=== PATIENT | male | born 1965 | race Caucasian/White ===

== ENCOUNTER 2016-12-12 19:41 | Emergency (ER) | payer OTHER ==
[~2016-12-12] VITALS: Ht 175.3 cm; Wt 140.2 kg
[~2016-12-12 19:41] MED LIST: COLCHICINE PO; GABA-531 PO; GLIP5TAB13 PO; PROBENECID PO; SEVE800T8 PO; VANC250C11 PO
[2016-12-12 19:57] VITALS: BP_SYST 146
[2016-12-12 21:21] LABS: BASOPHILS # (AUTO) 0.2 K/uL (0.0-0.2); BASOPHILS % (AUTO) 2.8 % (0.0-2.0); CALCIUM 8.6 mg/dL (8.4-11.0); EOSINOPHILS # (AUTO) 0.1 K/uL (0.0-0.4); HEMOGLOBIN 9.8 g/dL (14.0-18.0); LYMPHOCYTES # (AUTO) 0.5 K/uL (1.0-5.5); LYMPHOCYTES % (AUTO) 5.7 % (20.5-51.5); MEAN CORPUSCULAR HEMOGLOBIN 34 pg (27-31); MEAN CORPUSCULAR HGB CONC 34 % (32-36); MEAN CORPUSCULAR VOLUME 101 fL (79.0-98.0); MONOCYTES # (AUTO) 0.8 K/uL (0.0-1.0); MONOCYTES % (AUTO) 9.6 % (1.7-9.3); NEUTROPHILS # (AUTO) 7.2 K/uL (1.8-7.7); NEUTROPHILS % (AUTO) 80.9 % (40.0-70.0); POTASSIUM 5.1 mmol/L (3.5-5.1); RED BLOOD CELL COUNT(AUTO) 2.87 MIL/uL (4.2-6.2); RED CELL DISTRIBUTION WIDTH 15.4 % (9.0-15.0); WHITE BLOOD COUNT (AUTO) 8.8 K/uL (4.8-10.8)
[2016-12-12 21:24] LABS: INR 1.1 (0.80-1.20); PROTHROMBIN TIME 12.1 SECS (9.5-12.5)
[2016-12-12 21:26] LABS: ALBUMIN 3.4 g/dL (3.4-4.8); TOTAL BILIRUBIN 1.3 mg/dL (0.0-1.0); TOTAL PROTEIN, SERUM 7.1 g/dL (6.4-8.3)
[2016-12-12 21:33] LABS: CREATININE 7.83 mg/dL (0.55-1.30)
[2016-12-12 21:45] LABS: PLATELET COUNT (AUTO) 31 K/uL (130-430)
[2016-12-12 22:49] LABS: BILIRUBIN,URINE NEGATIVE (NEGATIVE); BLOOD, URINE 1+ (NEGATIVE); CLARITY/URINE CLEAR (CLEAR); COLOR,URINE YELLOW (YELLOW); GLUCOSE,URINE NEGATIVE (NEGATIVE); KETONES,URINE NEGATIVE (NEGATIVE); LEUKOCYTE ESTERASE ,URINE NEGATIVE (NEGATIVE); NITRITE, URINE NEGATIVE (NEGATIVE); PROTEIN URINE 2+ (NEGATIVE)
[2016-12-12 22:56] LABS: BACTERIA,URINE FEW /HPF (None Seen); RBC,URINE 0-3 /HPF (0-3)
[2016-12-13] MEDS ORDERED: LEVOFLOXACIN 500 MG/D5W 100 ML IV ONE (00:15)
[2016-12-13 01:40] VITALS: BP_SYST 140
== END 2016-12-13 01:40 | disposition home or self-care (01) ==
LOC: SED 19:41
DX: N39.0 Urinary tract infection, site not specified (principal); I13.2 Hypertensive heart and chronic kidney disease with heart failure and with stage 5 chronic kidney disease, or end stage renal disease; E11.22 Type 2 diabetes mellitus with diabetic chronic kidney disease; N18.6 End stage renal disease; I50.9 Heart failure, unspecified; Z99.2 Dependence on renal dialysis; Z79.4 Long term (current) use of insulin
CPT/HCPCS: 36415; 71010; 80053; 81000; 83605; 83880; 84484; 85025; 85610; 85730; 87040; 87086; 93005; 96365; 99285; J1956

== ENCOUNTER 2017-01-19 00:15 | Inpatient (IN) | payer OTHER ==
[~2017-01-19] VITALS: Ht 175.3 cm; Wt 158.0 kg
[~2017-01-19 00:15] MED LIST changes: -COLCHICINE PO; -PROBENECID PO; -VANC250C11 PO
--- NOTE | 2017-01-19 00:40 | NUR ---
Patient to ER bed 6 to gown for evaluation. Side rails up. Report given to POLY BAÑUELOS.
--- NOTE | 2017-01-19 00:50 | NUR ---
Patient AOx4, presents to ER with complaint of fever and left lower leg tenderness. Patient states he was currently on ATB therapy for a left plantar foot infection. Patient has hx of heart bypass and dialysis. Patient is able to follow verbal command. is at bedside.
--- NOTE | 2017-01-19 01:10 | NUR ---
ER MD Foreman at bedside examining patient.
[2017-01-19] MEDS ORDERED: NACL 0.9% 1,000 ML IV ONE ×2 (01:11→02:56)
--- NOTE | 2017-01-19 01:20 | NUR ---
MD Foreman aware of the patient's low BP. No new orders at this time.
--- NOTE | 2017-01-19 02:20 | NUR ---
# 20 gauge angiocath placed to LFA. Use of asceptic technique. Opsite placed over site. Blood return noted. Flushed with 10 cc of normal saline. No evidence of infiltration noted. Patient tolerated well.
[2017-01-19 02:21] LABS: HEMATOCRIT 28.7 % (36-54); HEMOGLOBIN 10.1 g/dL (14.0-18.0); MEAN CORPUSCULAR HEMOGLOBIN 35 pg (27-31); MEAN CORPUSCULAR HGB CONC 35 % (32-36); MEAN CORPUSCULAR VOLUME 101 fL (79.0-98.0); RED BLOOD CELL COUNT(AUTO) 2.85 MIL/uL (4.2-6.2); RED CELL DISTRIBUTION WIDTH 15.3 % (9.0-15.0); WHITE BLOOD COUNT (AUTO) 9.7 K/uL (4.8-10.8)
[2017-01-19 02:30] LABS: CALCIUM 8.8 mg/dL (8.4-11.0); CREATININE 7.19 mg/dL (0.55-1.30); POTASSIUM 4.2 mmol/L (3.5-5.1)
[2017-01-19 02:35] LABS: ALBUMIN 3.1 g/dL (3.4-4.8); TOTAL BILIRUBIN 1.7 mg/dL (0.0-1.0)
[2017-01-19 02:48] LABS: INR 1.3 (0.80-1.20)
--- NOTE | 2017-01-19 02:51 | NUR ---
Critical value Plts 28 and Lactic 5.8 reported to MD Foreman. No ABT ordered at this time.
[2017-01-19 02:52] LABS: PLATELET COUNT (AUTO) 28 K/uL (130-430)
--- NOTE | 2017-01-19 02:54 | NUR ---
Medication reconciliation completed with information provided by - verbal from patient. Any prior medication reconciliation on file was reviewed and corrected.
[2017-01-19 02:58] LABS: BAND % (MANUAL) 13 % (0-6); BASOPHILS % (MANUAL) 0 % (0-2); EOSINOPHILS % (MANUAL) 2 % (0-7); LYMPHOCYTES % (MANUAL) 7 % (20-46); METAMYELOCYTES % 1 % (0-0); MONOCYTES % (MANUAL) 5 % (0-11)
--- NOTE | 2017-01-19 03:00 | NUR ---
IVF infusing with no s/s of infiltration at this time. Will cont to monitor.
[2017-01-19] MEDS ORDERED: ONDANSETRON HCL 4 MG/2 ML VIAL IVP PRN (04:00)
[2017-01-19] MEDS ORDERED: MORPHINE 2 MG/ML INJ. SYRINGE IVP PRN (04:00)
--- NOTE | 2017-01-19 04:25 | NUR ---
Patient will be admitted to care of Dr. Li. Admitted to Telemetry unit. Will go to room 129A. Belongings list completed. Summary report printed. Report will be given at bedside.
[2017-01-19 04:30] VITALS: BP_SYST 100
--- NOTE | 2017-01-19 04:33 | NUR ---
Admission Note Received patient from ER with diagnosis of Febrile Illness. Initial Plan of Care discussed-patient verbalized understanding. Oriented to room, call light, pain management and safety.
--- NOTE | 2017-01-19 04:50 | NUR ---
Initial Notes Received patient resting in bed, awake, alert, oriented. Patient denies any acute distress or pain at this time. Breathing is even and unlabored. IV site patent/clean/dry. Wound under left foot noted, photos taken and charted. Educated patient regarding use of call light for assistance and fall precautions, patient verbalized understanding. Call light in hand, will continue to monitor.
[2017-01-19 05:06] VITALS: BP_SYST 100
[2017-01-19] MEDS ORDERED: PIPERACILLIN/TAZOBACTAM 2.25 GM VIAL IV ONE (05:16)
[2017-01-19] MEDS: ACETAMINOPHEN 325 MG TABLET PO PRN (05:24)
[2017-01-19] MEDS: PIPERACILLIN/TAZO 2.25G/DEX-IS 50 ML IV SCH ×3 (05:25→17:28)
[2017-01-19] MEDS: NORMAL SALINE 5 ML DISP.SYRIN IVF SCH ×3 (05:25→21:32)
[2017-01-19] MEDS ORDERED: VANCOMYCIN HCL 1,500 MG in NS 250 ML IV ONE (05:30)
--- NOTE | 2017-01-19 05:30 | NUR ---
MD Rounds Dr. Zimmerman in to see patient. Notified of abnormal labs.
[2017-01-19] MEDS: GABAPENTIN 300 MG CAPSULE PO SCH ×3 (06:03→17:29)
[2017-01-19 06:15] VITALS: BP_SYST 100
[2017-01-19] MEDS ORDERED: VANCOMYCIN HCL 500 MG/VIAL IV ONE (06:31)
[2017-01-19] MEDS ORDERED: VANCOMYCIN HCL 1000 MG/VIAL IV ONE (06:31)
--- NOTE | 2017-01-19 06:45 | NUR ---
Closing Notes Patient resting in bed with eyes closed, easily aroused. Patient denies any acute distress or pain at this time. Breathing is even and unlabored. IV site patent/clean/dry, no S/S infection/infiltration noted. Needs addressed throughout shift. Call light in hand, fall precautions in place. Will continue to monitor for changes and safety, and endorse all patient care/needs to oncoming nurse.
--- NOTE | 2017-01-19 07:10 | NUR ---
Sepsis Protocol Received phone call from [facility], regarding patient's condition meeting sepsis protocol and inquiring why patient did not receive fluids per protocol. Informed caller that Dr. Li was on unit earlier, made aware of sepsis protocol, no fluids ordered. Per [facility], MD must document why patient does not require fluids per protocol. Endorsed to oncoming nurse Riggins to inform MD regarding required documentation.
[2017-01-19 08:00] VITALS: BP_SYST 84
--- NOTE | 2017-01-19 08:00 | NUR ---
RN OPENING NOTE PATIENT LYING ON BED ALERT ORIENTED, PATIENT WAS ASSESSED, VITAL SIGNS ARE STABLE. PATIENT DOESN'T COMPLAIN OF DIZZINESS WILL PASS MED AT 0900
[2017-01-19] MEDS ORDERED: SEVELAMER CARBONATE PO SCH (09:00)
--- NOTE | 2017-01-19 10:23 | NUR ---
Spoke with pt at bedside. He is alert. Indep adls. + drives. lives in ss home with spouse and 2 adult children...all drive. Drives self to dialysis. Anticipate home with abx, iv at dialysis vs nursing station vs po's with pcp f/u. will follow hosp course/alexander rn/oscar/[facility] [phone]
--- NOTE | 2017-01-19 12:00 | NUR ---
RN ROUNDS PATIENT WAS GIVEN HIS IV ZOSYN, WILL FOLLOW UP
[2017-01-19] MEDS ORDERED: SEVELAMER HCL 800 MG TABLET PO ONE (14:30)
[2017-01-19] MEDS: HYDROcodone/ACETAMIN 10-325 MG TAB PO PRN ×2 (17:26→21:31)
--- NOTE | 2017-01-19 18:00 | NUR ---
RN CLOSING NOTES PATIENT HAS PAIN IN THE LEFT LEG, PATIENT WAS GIVEN HIS NORCO TABLET. PATIENT WAS GIVEN HIS IV ZOSYN, FAMILY ARE BY BEDSIDE.. LAB CALLED REGARDING THE PATIENT BLOOD CULTURE IS POSITIVE FOR GM NEGATIVE RODS. TALKED TO DR PONCE WHO COVERS DR. BARBOSA WILL ENDORSE TO NEXT SHIFT
[2017-01-19 18:01] VITALS: BP_SYST 105
[2017-01-19 20:00] VITALS: BP_SYST 117
--- NOTE | 2017-01-19 20:00 | NUR ---
Initial PM Note Pt was received in bed fully AAO x4. Speech is clear and pt is able to make his needs known. Pt's is visiting at the bedside. Pt denies pain or discomfort. No acute distress noted. Skin is warm and dry to touch. No signs or symptoms of hypoglycemia or hyperglycemia noted. Saline lock in LFA is patent without any signs of infiltration at the site. AV shunt in right arm is with good bruit and thrill. Fall and safety precautions are in place. Pt was instructed to call for assistance as needed and pt verbalized understanding. Call light is with pt. Will continue to monitor pt.
--- NOTE | 2017-01-19 21:31 | NUR ---
Pain Medication [place] 10/325mg 1 tablet was given po for c/o lt leg pain with relief.
--- NOTE | 2017-01-19 22:00 | NUR ---
Rounds Pt is resting comfortably in bed. O2 is on at 2l/min per NC. No respiratory distress noted. Pt was offered BIPAP/CPAP tonight, but pt declined. Call light is with pt and cardiac cath lab radiology technologist is showing SR.
[2017-01-20] VITALS (13 sets, daily range): BP systolic 74–158
--- NOTE | 2017-01-20 | NUR ---
Rounds Pt is rtestf
--- NOTE | 2017-01-20 | NUR ---
Rounds Pt is resting comfortably in bed. Will administer due medications. Call light is with pt.
[2017-01-20] MEDS: PIPERACILLIN/TAZO 2.25G/DEX-IS 50 ML IV SCH ×4 (00:04→18:00)
[2017-01-20] MEDS: GABAPENTIN 300 MG CAPSULE PO SCH ×4 (00:05→18:00)
--- NOTE | 2017-01-20 02:00 | NUR ---
Rounds Pt is sleeping without any distress noted. Call light is with pt. bus driver/monitor is showing SR. Will continue to monitor pt.
--- NOTE | 2017-01-20 04:00 | NUR ---
Rounds Pt is resting quietly in bed. Fall and safety precautions are in place.
[2017-01-20] MEDS: NORMAL SALINE 5 ML DISP.SYRIN IVF SCH ×3 (06:07→23:11)
--- NOTE | 2017-01-20 06:30 | NUR ---
Closing Note Pt is awake and resting comfortably in bed. All pt's needs were attended to. No fall or injury noted this shift. Skin remains warm and dry to touch. IV site is without any signs of infiltration. Will endorse to day shift nurse.
[2017-01-20 07:40] LABS: BASOPHILS # (AUTO) 0.1 K/uL (0.0-0.2); BASOPHILS % (AUTO) 0.6 % (0.0-2.0); EOSINOPHILS # (AUTO) 0.1 K/uL (0.0-0.4); EOSINOPHILS % (AUTO) 0.8 % (0.0-4.0); HEMATOCRIT 32.8 % (36-54); HEMOGLOBIN 11.4 g/dL (14.0-18.0); LYMPHOCYTES # (AUTO) 0.9 K/uL (1.0-5.5); LYMPHOCYTES % (AUTO) 4.6 % (20.5-51.5); MEAN CORPUSCULAR HEMOGLOBIN 35 pg (27-31); MEAN CORPUSCULAR HGB CONC 35 % (32-36); MEAN CORPUSCULAR VOLUME 101 fL (79.0-98.0); MONOCYTES # (AUTO) 1.9 K/uL (0.0-1.0); MONOCYTES % (AUTO) 10.1 % (1.7-9.3); NEUTROPHILS # (AUTO) 15.7 K/uL (1.8-7.7); NEUTROPHILS % (AUTO) 83.9 % (40.0-70.0); RED BLOOD CELL COUNT(AUTO) 3.25 MIL/uL (4.2-6.2); RED CELL DISTRIBUTION WIDTH 15.8 % (9.0-15.0)
--- NOTE | 2017-01-20 07:40 | NUR ---
AM Rounds: Received pt sitting up in bed. No acute signs of distress noted. Pt is sleepy but easily arousable. Saturating well 94% on room air. No SOB or difficult breathing noted. IV intact to LUE with no redness or swelling noted to site. AV shunt noted to MECHELLE, dressing CDI. Pt denies pain. Call light in reach. Continue to monitor.
[2017-01-20 08:23] LABS: CALCIUM 8.7 mg/dL (8.4-11.0)
--- NOTE | 2017-01-20 08:37 | NUR ---
Nutrition Update Zackary Scale 18 noted. Pt admitted for febrile illness [facility] BMI: 49.5 kg/m2 RD to follow per nutrition care standards
[2017-01-20] MEDS: SEVELAMER HCL 800 MG TABLET PO SCH (08:39)
[2017-01-20] MEDS: NEPHROVITE, (FOLIC ACID/VITAMIN B COMP W-C 1 TAB) PO SCH (08:39)
[2017-01-20 08:43] LABS: CREATININE 9.39 mg/dL (0.55-1.30)
--- NOTE | 2017-01-20 09:10 | NUR ---
RN Rounds: AM meds given per MD order. Pt tolerates well at this time. No SOB noted. Call light in lap. Continue to monitor.
[2017-01-20 09:26] LABS: WHITE BLOOD COUNT (AUTO) 18.7 K/uL (4.8-10.8)
[2017-01-20 09:27] LABS: PLATELET COUNT (AUTO) 27 K/uL (130-430)
[2017-01-20] MEDS: HYDROcodone/ACETAMIN 10-325 MG TAB PO PRN (10:16)
--- NOTE | 2017-01-20 12:00 | NUR ---
Dialysis Completed: Dialysis completed. Pt tolerates well but pt continues to be lethargic. Call light in lap. No acute signs of distress noted. Continue to monitor.
--- NOTE | 2017-01-20 14:00 | NUR ---
Rounds: Pt keeps trying to get out of bed. Pt remains lethargic but not confused. Pt is easily arousable and oriented to A&Ox4. Fall precautions in place. Continue to monitor.
--- NOTE | 2017-01-20 15:00 | NUR ---
Pharm Here: Dr. Chakraborty here to see patient. Pt saturating well on 3L via NC. 95% O2 sat. Dr. Chakraborty is aware that patient is lethargic and has been increasingly lethargic since dialysis. Charge nurse Mia at bedside as well.
[2017-01-20] MEDS ORDERED: DILTIAZEM HCL 156.25 MG in D5W 100 ML IV SCH ×2 (15:30→16:15)
--- NOTE | 2017-01-20 15:30 | NUR ---
Transfer to ICU: Transfer patient to ICU. Report given to POLY Bhandari. Pt saturating well on BiPAP. Spoke with melvin, she is aware patient has been transferred. Paged Dr. Brown to make him aware. Belongings sent with patient.
--- NOTE | 2017-01-20 15:31 | NUR ---
ICU RECEIVED REPORT FROM POLY WILLARD. PT PLACED IN ICU BED 4. PT IS LETHARGIC BUT AROUSABLE TO PAIN. HAS A HARD TIME KEEPING HIS EYES OPEN. BREATHING IS LABORED ON 2L/MIN, NC. O2 SAT IS 96%. RT IS HERE ASSESSING PT. HEART RATE IS 132BPM IN AFIB WITH RVR. B/P IS ELEVATED AT 158/38. AV SHUNT TO RFA- NO THRILL, NO BRUIT. PER POLY WILLARD, THRILL AND BRUIT WERE PRESENT IN AM. LEFT WRIST #22, PATENT. BRUISING TO B/L INNER THIGHS TO SALINAS. PER SUDHEER PANG- BRUISING WAS PRESENT THIS AM.
--- NOTE | 2017-01-20 15:39 | NUR ---
CONSULT CALLED FOR DR. MAGDALENO. SPOKE TO CODY, DIALED [phone].
--- NOTE | 2017-01-20 15:40 | NUR ---
RT NOTES Placed pt. on BIPAP 10/5 BUR 12 30% per Dr Hollingsworth. Alarms set and audible. Pt. appears to tolerate settings well. Pt. is arousable.
[2017-01-20] MEDS ORDERED: DILTIAZEM HCL 125 MG in D5W 100 ML IV PRN (15:45)
--- NOTE | 2017-01-20 16:11 | NUR ---
PAGE CALLED FOR DR. CABRERA. SPOKE TO ALLIE, DIALED [phone].
--- NOTE | 2017-01-20 16:15 | NUR ---
RT NOTES Changed settings to 14/6 BUR 14 35% per Dr Kaiser's order. No adverse reactions noted. Endorsed to Rt Tonya to draw ABG 1 hour post change.
--- NOTE | 2017-01-20 16:16 | NUR ---
CARDIBRANDONM CARDIBRANDONM FLORI INITIATED. B/P IS 127/45
--- NOTE | 2017-01-20 16:17 | NUR ---
CONSULT CALLED Reason for Consultation: CENTRAL LINE Was consult called? Y Person who was notified: FERNANDA Consulting Physician: MAX OMALLEY Mid Level Provider Specialty: GENERAL printing equipment mechanic apprentice
[2017-01-20] MEDS ORDERED: PANCURONIUM BROMIDE 10 MG/10 ML VIAL (PAVULON) IV ONE (16:19)
[2017-01-20] MEDS ORDERED: ETOMIDATE 20 MG/ 10 ML VIAL (AMIDATE) IVP ONE (16:19)
--- NOTE | 2017-01-20 16:31 | NUR ---
HYPOTENSION CARDIZEM DRIP STOPPED. B/P IS /. MADE DR RASHID AWARE. NEW ORDERS NOTED
--- NOTE | 2017-01-20 16:38 | NUR ---
PAGE CALLED FOR DR. FERNANDEZ. SPOKE TO KRISSY, DIALED [phone].
[2017-01-20 16:44] LABS: CALCIUM 8.9 mg/dL (8.4-11.0); CREATININE 7.05 mg/dL (0.55-1.30); POTASSIUM 4.2 mmol/L (3.5-5.1)
--- NOTE | 2017-01-20 16:50 | NUR ---
BOLUS 500ML BOLUS OF NS GIVEN. SBP REMAINS IN 70S
[2017-01-20 16:55] LABS: MEAN CORPUSCULAR HEMOGLOBIN 35 pg (27-31); MEAN CORPUSCULAR HGB CONC 34 % (32-36)
[2017-01-20 16:57] LABS: HEMATOCRIT 33.9 % (36-54); HEMOGLOBIN 11.6 g/dL (14.0-18.0); MEAN CORPUSCULAR VOLUME 102 fL (79.0-98.0); RED BLOOD CELL COUNT(AUTO) 3.33 MIL/uL (4.2-6.2); RED CELL DISTRIBUTION WIDTH 15.9 % (9.0-15.0)
[2017-01-20 17:05] LABS: INR 1.5 (0.80-1.20); PROTHROMBIN TIME 16.7 SECS (9.5-12.5)
[2017-01-20 17:07] LABS: TOTAL BILIRUBIN 2.7 mg/dL (0.0-1.0)
[2017-01-20] MEDS ORDERED: NS 500 ML IV ONE (17:15)
--- NOTE | 2017-01-20 17:30 | NUR ---
2ND BOLUS 500ML BOLUS OF NS GIVEN. SBP REMAINS IN 70'S
[2017-01-20 17:44] LABS: WHITE BLOOD COUNT (AUTO) 17.6 K/uL (4.8-10.8)
[2017-01-20 17:45] LABS: PLATELET COUNT (AUTO) 56 K/uL (130-430)
--- NOTE | 2017-01-20 17:47 | NUR ---
PAGE CALLED FOR DR. MAGDALENO. SPOKE TO CODY, DIALED [phone].
[2017-01-20 17:58] LABS: ATYPICAL LYMPHOCYTES % 0 % (0-0); BAND % (MANUAL) 21 % (0-6); BASOPHILS % (MANUAL) 0 % (0-2); EOSINOPHILS % (MANUAL) 1 % (0-7); LYMPHOCYTES % (MANUAL) 6 % (20-46); MONOCYTES % (MANUAL) 6 % (0-11)
[2017-01-20] MEDS ORDERED: NOREPINEPHRINE 4 MG/4 ML VIAL IV ONE ×2 (17:58→23:09)
[2017-01-20] MEDS: NOREPINEPHRINE BITARTRATE 4 MG in NS 246 ML IV PRN ×2 (17:58→23:07)
--- NOTE | 2017-01-20 17:58 | NUR ---
LEVOPHED LEVOPHED INITIATED AT 5MCG/MIN
[2017-01-20 17:59] LABS: METAMYELOCYTES % 2 % (0-0)
--- NOTE | 2017-01-20 18:10 | NUR ---
LEVOPHED SBP IS 88. LEVOPHED INCREASED TO 10MCG/KG/MIN. SBP IS NOW 110
--- NOTE | 2017-01-20 18:30 | NUR ---
CALLED CALLED DR MAGDALENO. HR IS 160'S. BOX TRUCK DRIVER HAS NOT SEEN PT. HE WILL BE HERE SHORTLY
--- NOTE | 2017-01-20 19:00 | NUR ---
HERE DR MAGDALENO, PEDIATRIC DENTIST, HERE TO SEE PT
--- NOTE | 2017-01-20 19:15 | NUR ---
CLOSING NOTE DR NAQVI IS AT BEDSIDE WITH POLY PUGA TO PLACE ROYA CATH. HR IS 170BPM. DR MAGDALENO IS HERE AND IS AWARE. LEVOPHED RUNNING AT 5MCG/KG/MIN. REPORT GIVEN TO POLY KYLE. ALL QUESTIONS ANSWERED
--- NOTE | 2017-01-20 20:29 | NUR ---
notified Dr. Antoine in [facility] was notified regrading pt's heart rate 190-198 per min. New order given to administer digoxin 0.125 IVP now. carried out.
[2017-01-20] MEDS ORDERED: DIGOXIN 0.5 MG/2 ML AMP IVP ONE (20:30)
--- NOTE | 2017-01-20 20:36 | NUR ---
administered digoxin 0.125mg IVP, HR 195, flushed with NS 5ml.. verified pt's name and at bedside. Will monitor
[2017-01-20] MEDS ORDERED: DIGOXIN 0.5 MG/2 ML AMP ONE (20:42)
[2017-01-20] MEDS ORDERED: DILTIAZEM HCL 25 MG/5 ML VIAL IVP ONE (21:45)
--- NOTE | 2017-01-20 21:45 | NUR ---
Spoke to Dr. polo, covering for dr. Stratton regarding. dr. luna asked to notify MD regarding heart rate.
--- NOTE | 2017-01-20 21:45 | NUR ---
Administered Cardizem 10mg IVP. and start cardizem 5mg/hr and titrate. read back order. clarified. carried out per
[2017-01-20] MEDS ORDERED: DILTIAZEM HCL 25 MG/5 ML VIAL ONE (21:47)
[2017-01-20] MEDS: DILTIAZEM HCL 125 MG in D5W 100 ML IV SCH (22:10)
[2017-01-21] VITALS (21 sets, daily range): BP systolic 82–162
[2017-01-21] MEDS: PIPERACILLIN/TAZO 2.25G/DEX-IS 50 ML IV SCH ×5 (01:09→23:44)
[2017-01-21] MEDS: GABAPENTIN 300 MG CAPSULE PO SCH ×3 (01:25→07:00)
[2017-01-21] MEDS: HYDROcodone/ACETAMIN 10-325 MG TAB PO PRN (01:27)
[2017-01-21] MEDS: NOREPINEPHRINE BITARTRATE 4 MG in NS 246 ML IV PRN ×5 (02:11→20:43)
[2017-01-21] MEDS ORDERED: DIGOXIN 0.5 MG/2 ML AMP IVP ONE (04:00)
[2017-01-21] MEDS ORDERED: DILTIAZEM HCL 125 MG/25 ML VIAL IV ONE (06:14)
[2017-01-21] MEDS: DILTIAZEM HCL 125 MG in D5W 100 ML IV SCH (06:32)
[2017-01-21] MEDS: NORMAL SALINE 5 ML DISP.SYRIN IVF SCH ×3 (06:32→22:48)
[2017-01-21] MEDS: VANCOMYCIN HCL 1,500 MG in NS 250 ML IV SCH (06:33)
[2017-01-21 06:46] LABS: HEMOGLOBIN 12.5 g/dL (14.0-18.0); LYMPHOCYTES # (AUTO) 1.2 K/uL (1.0-5.5); NEUTROPHILS # (AUTO) 19.6 K/uL (1.8-7.7)
[2017-01-21 07:04] LABS: POTASSIUM 4.6 mmol/L (3.5-5.1)
[2017-01-21 07:05] LABS: BASOPHILS % (AUTO) 0.2 % (0.0-2.0); EOSINOPHILS # (AUTO) 0.5 K/uL (0.0-0.4); EOSINOPHILS % (AUTO) 2.3 % (0.0-4.0); HEMATOCRIT 37.7 % (36-54); LYMPHOCYTES % (AUTO) 5.2 % (20.5-51.5); MEAN CORPUSCULAR HEMOGLOBIN 34 pg (27-31); MEAN CORPUSCULAR HGB CONC 33 % (32-36); MEAN CORPUSCULAR VOLUME 103 fL (79.0-98.0); MONOCYTES # (AUTO) 2.1 K/uL (0.0-1.0); NEUTROPHILS % (AUTO) 83.3 % (40.0-70.0); RED BLOOD CELL COUNT(AUTO) 3.66 MIL/uL (4.2-6.2); RED CELL DISTRIBUTION WIDTH 16.3 % (9.0-15.0); WHITE BLOOD COUNT (AUTO) 23.4 K/uL (4.8-10.8)
--- NOTE | 2017-01-21 07:30 | NUR ---
AM ROUNDS RECEIVED PT UP IN BED. AWAKE, SLEEPY BUT AROUSABLE. BREATHING IS EVEN AND UNLABORED ON BIPAP. ROYA CATH WITH PIGTAIL TO RT GROIN, PLACED YESTERDAY BY DR NAQVI. LEVOPHED, CARDIZEM AND IVATB INFUSING WITHOUT DIFFICULTY. SHUNT TO RFA, NO BRUIT, NO THRILL. MD IS AWARE. ORIENTED PT TO CALL LIGHT. RD NOTED. ENCOURAGED PT TO CALL ME WITH ANY NEEDS.
[2017-01-21 07:52] LABS: CREATININE 8.3 mg/dL (0.55-1.30)
[2017-01-21 08:01] LABS: PLATELET COUNT (AUTO) 83 K/uL (130-430)
[2017-01-21] MEDS: SEVELAMER HCL 800 MG TABLET PO SCH (09:04)
[2017-01-21] MEDS: NEPHROVITE, (FOLIC ACID/VITAMIN B COMP W-C 1 TAB) PO SCH (09:04)
--- NOTE | 2017-01-21 10:29 | NUR ---
Oxygen O2 sat 91% on 2L/ min, nc. Increased o2 to 3L/min o2 saturation now 95%.
--- NOTE | 2017-01-21 11:32 | NUR ---
WOUND EVALUATION: Wound Consult received from Dr. Li. Thank you, Dr. Li, for the consult. Patient received in a Maddie Bed with an IsoFlex MARY mattress, awake, drowsy, and oriented. Patient is able to turn in bed independently. Zackary Score is a 15. Past Medical History: End-stage renal disease, hemodialysis (M/W/F), chronic thrombocytopenia, morbid obesity, diabetes mellitus, AV fistula. Recent Labs: WBC 23.4, RBC 3.66, hemoglobin 12.5, hematocrit 37.7, platelets 83, chloride 97, BUN/creatinine 55, creatinine 8.30, GFR 7, glucose 208, albumin 3.0, BNP 307, PT 16.7, INR 1.5. Intrinsic factors that delay wound healing: Diabetes mellitus, hypoalbuminemia. Extrinsic factors that delay wound healing: Decreased mobility. Microbiology: Blood culture times 2 results in progress. MRSA screen results negative. Wound Assessment: 1. Left foot, fifth metatarsal head, plantar and lateral aspects: Diabetic/neuropathic foot ulcer, present on admission. Wound bed is 100% dark pink tissue. No odor, no drainage. Periwound is intact, but callused. Measures 1.6 cm x 1.7 cm. Recommend: Cleanse wound with normal saline. Put sure prep on periwound. Apply therapy on the gel onto wound bed and callused portion of wound. Her with foam dressing. Perform wound care daily, and as needed for dressing soiling or dislodgment. 2. Left lateral lower extremity, mid calf level: Closed below present with purple discoloration, present on admission. No odor, no drainage. Measures 6.5 cm by 6.0 cm . Extremity is erythematous, edematous, and has calor. Recommend: No dressing needed. Continue to monitor site every shift. Contact physician if area worsens. Recommend: Cleanse wound with normal saline. Place moisture barrier cream onto beth-wound. Cover with foam dressing. Perform wound care daily, and as needed for dressing soiling or dislodgement. Also recommend: Encourage and assist patient as needed with repositioning every 2 hours with pillow support and off-load pressure areas with pillows for pressure re-distribution. Offload, elevate and float bilateral heels with pillows. Perform skin care and monitor skin integrity Q shift. Use moisture barrier cream on buttocks and other moisture susceptible areas QID and as needed for soiling. Recommend surgical consult for possible debridement. Addendum: 01/21/17 at 1220 by Eduar Young RN Error in note. Please see newer note at 1133.
--- NOTE | 2017-01-21 14:15 | NUR ---
REPORT RECEIVED. PATIENT IS LETHARGIC, MOANS OCCASIONALLY. ST ON MONITOR. ROYA CATH ON THE RIGHT LEG, TRIPLE LUMEN, RUNNING ON IV SOLUTIONS AND DRIPS. DRESSING NOTED ON THE LEFT FOOT. CALL LIGHT IN PLACE, BED LOCKED AT THE LOWEST POSITION, WILL CONTINUE TO MONITOR.
[2017-01-21] MEDS ORDERED: DILTIAZEM HCL 156.25 MG in D5W 100 ML IV SCH (15:38)
[2017-01-21] MEDS ORDERED: DILTIAZEM HCL 125 MG in D5W 100 ML IV SCH (15:38)
--- NOTE | 2017-01-21 16:00 | NUR ---
PATIENT IS TURNED AND REPOSITIONED FOR COMFORT. WILL CONTINUE TO MONITOR.
--- NOTE | 2017-01-21 17:26 | NUR ---
HANDOFF REPORT HANDOFF REPORT GIVEN TO POLY RICHTER.
--- NOTE | 2017-01-21 18:00 | NUR ---
PATIENT'S LEVOPHED DRIP IS REDUCED TO 10MCG/HR
--- NOTE | 2017-01-21 18:11 | NUR ---
@1750 Placed back on BIPAP.
--- NOTE | 2017-01-21 18:38 | NUR ---
PATIENT'S LEVOPHED DRIP IS TITRATED DOWN TO 9MCG/MIN. WILL MONITOR CLOSELY.
--- NOTE | 2017-01-21 19:35 | NUR ---
INITIAL NOTE Patient resting on the bed. Denied of pain. No acute distress. Respiration even and unlabored. On BIPAP at this time. Skin warm and dry to touch. Jori cath intact to right femoral, no redness, no swelling, no drainage. On Cardizem drip 5mg/hr and Levophed drip 9mcg/min, infusing well. Family at bedside. Safety measure maintained. Bed in low position, side rails up, bed alarm on. Call light within reached. Will continue to monitor.
--- NOTE | 2017-01-21 21:00 | NUR ---
PATIENT REMOVED BIPAP, PLACED BACK AND INSTRUCTED PATIENT NOT TO REMOVED.
--- NOTE | 2017-01-21 22:05 | NUR ---
ROUND Patient resting on the bed with eyes closed. No acute distress. BIPAP in placed. Safety measure maintained. Call light within reached. Continue to monitor.
--- NOTE | 2017-01-21 23:05 | NUR ---
ROUND Patient resting on the bed with eyes closed. No acute distress. Continue on BIPAP. Bed in low position, side rails up, bed alarm on. Call light within reached. Continue to monitor.
[2017-01-22] VITALS (24 sets, daily range): BP systolic 83–153
--- NOTE | 2017-01-22 01:30 | NUR ---
PATIENT REMOVED BIPAP AGAIN, PLACED BACK AND INSTRUCTED PATIENT NOT TO REMOVE, VERBALLY UNDERSTANDING. NO ACUTE DISTRESS.
--- NOTE | 2017-01-22 04:05 | NUR ---
IV ACCIDENTAL OUT WHILE PATIENT TURNING DURING SLEEPING. IV TIP INTACT, MODERATE BLEEDING NOTED, PRESSURE DRESSING APPLIED.
--- NOTE | 2017-01-22 04:50 | NUR ---
BIPAP REMOVED BY RT. NO ACUTE DISTRESS.
[2017-01-22] MEDS: PIPERACILLIN/TAZO 2.25G/DEX-IS 50 ML IV SCH ×3 (06:38→17:01)
[2017-01-22] MEDS: NOREPINEPHRINE BITARTRATE 4 MG in NS 246 ML IV PRN ×2 (06:38→06:47)
[2017-01-22] MEDS: NORMAL SALINE 5 ML DISP.SYRIN IVF SCH ×3 (06:39→22:00)
--- NOTE | 2017-01-22 06:50 | NUR ---
CLOSING NOTE Patient resting on the bed. No acute distress. Respiration even and unlabored. On O2 3L/min via NC. Jori cath dressing changed, no redness, no swelling. IV drip infusing well. Safety measure maintained. Bed in low position, side rails up, bed alarm on. Call light within reached. Will endorse to morning shift nurse.
[2017-01-22 06:54] LABS: HEMATOCRIT 34.6 % (36-54); HEMOGLOBIN 11.9 g/dL (14.0-18.0); MEAN CORPUSCULAR HEMOGLOBIN 35 pg (27-31); MEAN CORPUSCULAR HGB CONC 34 % (32-36); MEAN CORPUSCULAR VOLUME 102 fL (79.0-98.0); WHITE BLOOD COUNT (AUTO) 16.2 K/uL (4.8-10.8)
--- NOTE | 2017-01-22 07:10 | NUR ---
INITIAL NOTE RECEIVED PATIENT FROM SAW GRINDER NURSE, PATIENT IS RESTING IN BED, NO SIGNS OF DISTRESS NOTED, ASSESSMENT COMPLETE, PATIENT IS AWAKE AND ALERT, PATIENT FALLS ASLEEP EASILY BUT IS ARROUSABLE, PATIENT HAS ROYA CATHETER TO RIGHT FEMORAL, DRESSING IS DRY AND INTACT, CURRENTLY RUNNING LEVOPHED AT 5MCG/MIN, PATIENT ALSO HAS A AV FISTULA IN RIGHT FOREARM WHICH IS CURRENTLY NOT BEING USED FOR DIALYSIS, PATIENT HAS SCD ON RIGHT LEG ONLY, CALL PERLA LEFT NEXT TO PATIENT'S HAND, BED IN LOWEST POSITION, SIDE RIALS UP, FALL PRECAUTIONS IN PLACE, WILL CONTINUE TO MONITOR.
[2017-01-22 07:12] LABS: CALCIUM 8.4 mg/dL (8.4-11.0); POTASSIUM 4.7 mmol/L (3.5-5.1)
--- NOTE | 2017-01-22 07:25 | NUR ---
PAGE: GAVE A CALL TO DR. LOMBARDI [phone], MESSAGE LEFT ON ANSWERING MACHINE AND CALLED AGAIN AT 0730.
[2017-01-22 07:33] LABS: PLATELET COUNT (AUTO) 45 K/uL (130-430)
--- NOTE | 2017-01-22 07:42 | NUR ---
DR. FERNANDEZ NOTIFIED DR. FERNANDEZ OF CRITICAL RESULTS OF ABGS AND PLATELETS, NO NEW ORDERS GIVEN, STATED HE WILL BE IN TO SEE PATIENT
[2017-01-22 07:55] LABS: CREATININE 9.5 mg/dL (0.55-1.30)
--- NOTE | 2017-01-22 08:02 | NUR ---
PAGE: GIVE A CALL TO DR. VICK REGARDING CRITICAL VALUE [phone], MESSAGE LEFT TO TURNER.
--- NOTE | 2017-01-22 08:10 | NUR ---
DR. SHARLA TORRES IS AWARE OF PATIENT'S TROPONIN LEVELS, NO NEW ORDERS, IS ALSO AWARE THAT CARDIZEM WAS TURNED OFF AT 06:30, NO NEW ORDERS
--- NOTE | 2017-01-22 08:11 | NUR ---
DR. VICK NOTIFIED DR. VICK OF CRITICAL LAB OF CREATININE, PATIENT HAS ORDERED DIALYSIS TODAY, NO NEW ORDERS
--- NOTE | 2017-01-22 08:25 | NUR ---
PAGE: GAVE A CALL AGAIN TO DR. HARJIT MAGDALENO IS STAKING PRESS OPERATOR , MESSAGE LEFT TO TURNER.
[2017-01-22] MEDS: NEPHROVITE, (FOLIC ACID/VITAMIN B COMP W-C 1 TAB) PO SCH (08:30)
[2017-01-22] MEDS: SEVELAMER HCL 800 MG TABLET PO SCH (08:30)
--- NOTE | 2017-01-22 08:30 | NUR ---
MEDICATIONS PATIENT WAS GIVEN MORNING MEDICATION, EDUCATED PATIENT ON REASON FOR MEDICATION, PATIENT VERBALIZED UNDERSTANDING, NO OTHER NEEDS AT THIS TIME, WILL CONTINUE TO MONITOR, FALL PRECAUTIONS IN PLACE.
--- NOTE | 2017-01-22 09:15 | NUR ---
CALL: GAIVE ANOTHER CALL TO DR. MAGDALENO , SPOKE TO VITALY. NURSE NASIR SPOKE TO VITALY BY PHONE.
[2017-01-22 09:43] LABS: BAND % (MANUAL) 10 % (0-6); BASOPHILS % (MANUAL) 0 % (0-2); EOSINOPHILS % (MANUAL) 0 % (0-7); LYMPHOCYTES % (MANUAL) 5 % (20-46); MONOCYTES % (MANUAL) 9 % (0-11)
--- NOTE | 2017-01-22 10:10 | NUR ---
RT NOTES PT ON 3L N/C AGREED TO TEST DIFFERENT BIPAP MASKS BUT AFTER HE GET CLEANED UP. POLY DOUGHERTY NOTIFIED. WILL RETURN LATER TO PT TO TRY MASKS.
--- NOTE | 2017-01-22 10:30 | NUR ---
ROUNDS PATIENT CLEANED, PARTIAL BED BATH GIVEN, NO OTHER NEEDS AT THIS TIME,WILL CONTINUE TO MONITOR, FALL PRECAUTIONS IN PLACE.
--- NOTE | 2017-01-22 11:30 | NUR ---
ROUNDS PATIENT CURRENTLY GETTING DIALYSIS, PATIENT IN STABLE CONDITION, WILL CONTINUE TO MONITOR, FALL PRECAUTIONS IN PLACE
--- NOTE | 2017-01-22 12:15 | NUR ---
BIPAP BIPAP WAS PUT ON BY RT, PATIENT IS AGREEING TO KEEP MASK ON, IS AT BEDSIDE, WILL CONTINUE TO MONITOR, FALL PRECAUTIONS IN PLACE.
--- NOTE | 2017-01-22 12:25 | NUR ---
accucheck bs check, bs 265, no insulin given due to patient not awake to eat, patient goes back to sleep when trying to wake up to given food, will try to feed patient at later time
--- NOTE | 2017-01-22 14:35 | NUR ---
RN ROUNDS PATIENT STILL GETTING DIALYSIS, PATIENT'S BLOOD PRESSURE IS STABLE, PATIENT TOLERATING BIPAP WELL, WILL CONTINUE TO MONITOR, FALL PRECAUTIONS IN PLACE.
--- NOTE | 2017-01-22 15:20 | NUR ---
ROUNDS PATIENT REMOVED BIPAP MASK, EDUCATED PATIENT ON REASON FOR BIPAP, PATIENT REFUSED TO PUT IT BACK ON, APPLIED NC BACK ON PATIENT AT 3L, WILL CONTINUE TO MONITOR, FALL PRECAUTIONS IN PLACE.
--- NOTE | 2017-01-22 15:30 | NUR ---
DIALYSIS DIALYSIS FINISHED, PATIENT TOLERATED WELL, 0ML OUTPUT FROM DIALYSIS, PATIENT RESTING IN BED, NO SIGNS OF DISTRESS NOTED, CALL PERLA WITHIN REACH, FALL PRECAUTIONS IN PLACE, WILL CONTINUE TO MONITOR.
--- NOTE | 2017-01-22 16:00 | NUR ---
WOUND CARE 1. Left foot Cleansed wound with normal saline, sure prep applied on periwound, applied therapy on the gel onto wound bed and callused portion of wound, covered with foam dressing.
--- NOTE | 2017-01-22 17:05 | NUR ---
ROUNDS PATIENT RESTING IN BED WITH EYES CLOSED, WAKES UP OCCASIONALLY AND TAKES OFF NC, REORIENTED PATIENT, PATIENT THEN GOES BACK TO SLEEP, NO SIGNS OF DISTRESS NOTED, STABLE CONDITION, WILL CONTINUE TO MONITOR, CALL PERLA WITHIN REACH OF PATIENT, FALL PRECAUTIONS IN PLACE, WILL CONTINUE TO MONITOR.
[2017-01-22] MEDS: INSULIN ASPART 100 UNITS/ML, 10 ML VIAL (NovoLOG) SUBCUT PRN (18:00)
--- NOTE | 2017-01-22 18:45 | NUR ---
REPORT GIVEN REPORT GIVEN TO WESLEY PANG FOR FURTHER CARE, PATIENT IN STABLE CONDITION
--- NOTE | 2017-01-22 19:00 | NUR ---
REPORT GIVEN TO LATRICIA PANG USING SBAR APPROACH.
--- NOTE | 2017-01-22 20:00 | NUR ---
LETHARGIC. BOUTS OF CONFUSION. ON O2 AT 3L/MIN/NC. POX 98%. TAKES OFF NASAL CANNULA. DISROBES. REQUIRES FREQUENT REMINDERS.RELATIVES AT BEDSIDE VISITING. INCONTINENT OF STOOL. DEFECATED 1 LARGE DARK GREEN LBM. SALINAS CARE, BACK CARE GIVEN. GROIN AND GENITAL AREA CLEANED. COMPLETE LINEN CHANGE. ASSISTS WITH TURNING. RUPA PROC WELL. ON LEVOPHED AT 2 MCG/MIN. SR.
--- NOTE | 2017-01-22 22:00 | NUR ---
DOZES ON AND OFF. LEFT FOR HOME EARLIER. ASKED FOR ICE CHIPS. CONFUSED AT TIMES. DISROBES.
[2017-01-23] VITALS (19 sets, daily range): BP systolic 93–167
--- NOTE | 2017-01-23 | NUR ---
VSS. PLACED ON BIPAP 23/10, FIO2 30%, BUR 12 BY RT. ACCU-CHEK 247, 4 UNITS NOVOLOG INSULIN SQ GIVEN.
[2017-01-23] MEDS: PIPERACILLIN/TAZO 2.25G/DEX-IS 50 ML IV SCH ×5 (00:18→23:39)
[2017-01-23] MEDS: INSULIN ASPART 100 UNITS/ML, 10 ML VIAL (NovoLOG) SUBCUT PRN ×5 (00:28→23:46)
--- NOTE | 2017-01-23 01:00 | NUR ---
BP 127/ 54, LEVOPHED DRIP OFF.
--- NOTE | 2017-01-23 04:00 | NUR ---
SLEPT FOR LONG PERIODS OF TIME. VSS. 1 LARGE GELATINOUS DARK GREENISH STOOL DEFECATED. SALINAS-CARE RENDERED. PARTIAL LINEN CHANGE. ASSISTS WITH TURNING. RUPA PROC WELL.
--- NOTE | 2017-01-23 06:00 | NUR ---
SLEPT WELL MOST OF NIGHT. ACCU-CHEK 241, 4 UNITS NOVOLOG INSULIN SQ GIVEN. ANURIC. SR. ASSISTS WITH REPOSITIONING. CONFUSED AT TIMES. REMAINS IN GUARDED CONDITION.
[2017-01-23] MEDS: VANCOMYCIN HCL 1,500 MG in NS 250 ML IV SCH (06:01)
[2017-01-23] MEDS: NORMAL SALINE 5 ML DISP.SYRIN IVF SCH ×3 (06:04→22:00)
[2017-01-23 06:51] LABS: BASOPHILS % (AUTO) 0.3 % (0.0-2.0); EOSINOPHILS # (AUTO) 0.1 K/uL (0.0-0.4); EOSINOPHILS % (AUTO) 1.7 % (0.0-4.0); HEMOGLOBIN 10.5 g/dL (14.0-18.0); LYMPHOCYTES # (AUTO) 0.6 K/uL (1.0-5.5); LYMPHOCYTES % (AUTO) 6.5 % (20.5-51.5); MEAN CORPUSCULAR HEMOGLOBIN 34 pg (27-31); MEAN CORPUSCULAR HGB CONC 34 % (32-36); MEAN CORPUSCULAR VOLUME 101 fL (79.0-98.0); MONOCYTES # (AUTO) 1.4 K/uL (0.0-1.0); MONOCYTES % (AUTO) 16.4 % (1.7-9.3); NEUTROPHILS # (AUTO) 6.7 K/uL (1.8-7.7); NEUTROPHILS % (AUTO) 75.1 % (40.0-70.0); RED BLOOD CELL COUNT(AUTO) 3.07 MIL/uL (4.2-6.2); RED CELL DISTRIBUTION WIDTH 16.1 % (9.0-15.0); WHITE BLOOD COUNT (AUTO) 8.8 K/uL (4.8-10.8)
[2017-01-23 07:11] LABS: PLATELET COUNT (AUTO) 30 K/uL (130-430)
[2017-01-23 07:12] LABS: CALCIUM 8.8 mg/dL (8.4-11.0); POTASSIUM 3.7 mmol/L (3.5-5.1)
[2017-01-23 07:38] LABS: CREATININE 7.97 mg/dL (0.55-1.30)
--- NOTE | 2017-01-23 08:15 | NUR ---
OPENING NOTE RECEIVED REPORT FROM CASINO SURVEILLANCE OFFICER NURSE. PATIENT HAD BIPAP DURING SLEEPING HOURS, RESUMED PATIENT 3L NASAL CANNULA. PATIENT SITTING UPRIGHT IN BED, ALERT AND ORIENTED. PATIENT RESTING COMFORTABLY, NO COMPLAINTS OF PAIN AT THIS TIME. PATIENTS BED IN LOWEST POSITION, CALL LIGHT WITHIN REACH, AND SIDE RAILS ARE UP FOR SAFETY MEASURES. PATIENT HAS SCD APPLIED TO RLE FOR DVT PROPHYLAXIS, CONTRAINDICATED FOR LLE. PATIENT IS ON FLUID RESTRICTION. PATIENTS IV RUNNING PER MD ORDERS. WILL CONTINUE TO MONITOR PATIENT FOR CHANGES IN STATUS.
[2017-01-23] MEDS: SEVELAMER HCL 800 MG TABLET PO SCH (09:23)
[2017-01-23] MEDS: NEPHROVITE, (FOLIC ACID/VITAMIN B COMP W-C 1 TAB) PO SCH (09:24)
--- NOTE | 2017-01-23 09:30 | NUR ---
WOUND CARE/NOTE PATIENT GIVEN MORNING MEDICATION, TOLERATED WELL. PATIENT SITTING UPRIGHT IN BED, ALERT AND ORIENTED. PATIENTS WOUND CARE PERFORMED, THERAHONEY OINTMENT APPLIED AND 4X4 FOAM DRESSING APPLIED TO LEFT FOOT WOUND. PATIENT RESTING COMFORTABLY, NO COMPLAINTS OF PAIN AT THIS TIME. PATIENTS BED IN LOWEST POSITION, CALL LIGHT WITHIN REACH, AND SIDE RAILS ARE UP FOR SAFETY MEASURES. PATIENT HAS SCD APPLIED TO RLE FOR DVT PROPHYLAXIS, CONTRAINDICATED FOR LLE. PATIENT IS ON FLUID RESTRICTION. PATIENTS IV ABX COMPLETED, TKO RATE FOR NORMAL SALINE. WILL CONTINUE TO MONITOR PATIENT FOR CHANGES IN STATUS.
--- NOTE | 2017-01-23 09:56 | NUR ---
0710 PT TAKEN OFF BIPAP, PLACED ON 3L NC. SAT 99% HR 64 RR12. RN AWARE. Addendum: 01/23/17 at 0957 by Krystal Alexandra RT Amended: Links added.
--- NOTE | 2017-01-23 10:18 | NUR ---
1000 NOTE PATIENT SITTING UPRIGHT IN BED, CONFUSION NOTED AAOX2 PERSON AND PLACE. PATIENT RESTING COMFORTABLY UPON PILLOW SUPPORT, REPOSITIONED, NO COMPLAINTS OF PAIN AT THIS TIME. PATIENTS BED IN LOWEST POSITION, CALL LIGHT WITHIN REACH, AND SIDE RAILS ARE UP FOR SAFETY MEASURES. PATIENT HAS SCD APPLIED TO RLE FOR DVT PROPHYLAXIS, CONTRAINDICATED FOR LLE. IV AT TKO PER MD ORDERS. PATIENT IS ON FLUID RESTRICTION. PATIENTS IV RUNNING PER MD ORDERS. WILL CONTINUE TO MONITOR PATIENT FOR CHANGES IN STATUS.
--- NOTE | 2017-01-23 11:30 | NUR ---
P.T. NOTES RECEIVED P.T. EVAL ORDER TO EVALUATE AND TREAT IF OK WITH DR. MAGDALENO. PATIENT WAS SEEN IN HIS BED AWAKE AND ALERT AND STATES HE IS NOT READY FOR P.T. AT THIS TIME. INFORMED HIS NURSE ABOUT IT AND WILL ALSO AWAIT FOR THE APPROVAL OF DR. MAGDALENO IF HE CAN START WITH P.T. ON THE NEXT SCHEDULED P.T. SERVICES. (PVE).
--- NOTE | 2017-01-23 12:14 | NUR ---
1200 NOTE PATIENT SITTING UPRIGHT IN BED, CONFUSION NOTED AAOX2 PERSON AND PLACE. PATIENT IS RESTING/SLEEPING ON AND OFF. PATIENT RESTING COMFORTABLY UPON PILLOW SUPPORT, REPOSITIONED, NO COMPLAINTS OF PAIN AT THIS TIME. PATIENTS BED IN LOWEST POSITION, CALL LIGHT WITHIN REACH, AND SIDE RAILS ARE UP FOR SAFETY MEASURES. PATIENT HAS SCD APPLIED TO RLE FOR DVT PROPHYLAXIS, CONTRAINDICATED FOR LLE. IV AT TKO PER MD ORDERS. PATIENT IS ON FLUID RESTRICTION. PATIENTS IV RUNNING PER MD ORDERS. WILL CONTINUE TO MONITOR PATIENT FOR CHANGES IN STATUS.
--- NOTE | 2017-01-23 12:30 | NUR ---
Patient Round Provided pt with lunch tray, still exhibiting signs of forgetfulness. Repositioned pt. Pt states no pain or discomfort at this time. Will continue to monitor.
--- NOTE | 2017-01-23 14:18 | NUR ---
1400 NOTE PATIENT SITTING UPRIGHT IN BED, CONFUSION NOTED AAOX2 PERSON AND PLACE. PATIENT IS RESTING/SLEEPING ON AND OFF. PATIENT RESTING COMFORTABLY UPON PILLOW SUPPORT, REPOSITIONED, NO COMPLAINTS OF PAIN AT THIS TIME. PATIENTS BED IN LOWEST POSITION, CALL LIGHT WITHIN REACH, AND SIDE RAILS ARE UP FOR SAFETY MEASURES. PATIENT HAS SCD APPLIED TO RLE FOR DVT PROPHYLAXIS, CONTRAINDICATED FOR LLE. IV AT TKO PER MD ORDERS. PATIENT IS ON FLUID RESTRICTION. PATIENT GIVEN 10 CC FLUSH INDICATED. WILL CONTINUE TO MONITOR PATIENT FOR CHANGES IN STATUS.
--- NOTE | 2017-01-23 16:22 | NUR ---
1600 NOTE PATIENT SITTING UPRIGHT IN BED, CONFUSION NOTED AAOX2 PERSON AND PLACE. PATIENT IS RESTING/SLEEPING ON AND OFF. PATIENT RESTING COMFORTABLY UPON PILLOW SUPPORT, REPOSITIONED, NO COMPLAINTS OF PAIN AT THIS TIME. PATIENTS BED IN LOWEST POSITION, CALL LIGHT WITHIN REACH, AND SIDE RAILS ARE UP FOR SAFETY MEASURES. PATIENT HAS SCD APPLIED TO RLE FOR DVT PROPHYLAXIS, CONTRAINDICATED FOR LLE. IV AT TKO PER MD ORDERS. PATIENT IS ON FLUID RESTRICTION. WILL CONTINUE TO MONITOR PATIENT FOR CHANGES IN STATUS.
--- NOTE | 2017-01-23 18:25 | NUR ---
TRANSFERRED TO TELEMETRY PATIENT TRANSFERRED ON CONTINUOUS MONITORING AND OXYGEN AT 3L VIA NASAL CANNULA. PATIENT ORIENTED TO ROOM. CALL LIGHT GIVEN TO PATIENT. PATIENT REPORT GIVEN TO POLY AGUIRRE. PATIENT PLACED ON FEEDLOT MANAGER FOR TELEMETRY FLOOR. OXYGEN TRANSFERRED TO ROOM OXYGEN SUPPLY. FAMILY ESCORTED TO ROOM, TRAY SENT WITH PATIENT. PATIENT SITTING UPRIGHT IN BED, CONFUSION NOTED AAOX2 PERSON AND PLACE. PATIENT RESTING COMFORTABLY UPON PILLOW SUPPORT, REPOSITIONED, NO COMPLAINTS OF PAIN AT THIS TIME. PATIENT HAS SCD APPLIED TO RLE FOR DVT PROPHYLAXIS, CONTRAINDICATED FOR LLE. IV AT TKO PER MD ORDERS. PATIENT IS ON FLUID RESTRICTION. PATIENTS IV RUNNING PER MD ORDERS. WILL CONTINUE TO MONITOR PATIENT FOR CHANGES IN STATUS.
--- NOTE | 2017-01-23 18:42 | NUR ---
Patient received Awake, alert and oriented x3, reoriented to place, patient denies pain, stable condition at this time, assessment complete, educated irrigation system operator light system and to call for any assistance, patient and family verbalized understanding, no immediate needs at this time, will endorse report to NOC shift nurse, bed in lowest position, two side rails up, bed alarm on, call light within reach, fall and aspiration precautions in place.
--- NOTE | 2017-01-23 19:40 | NUR ---
INITIAL NOTES PT. RECEIVED RESTING IN BED. ALERT AND ORIENTED. VSS AT THIS TIME. DENIES PAIN. SATING WELL ON 3L NC. RADIAL PULSES ARE PRESENT BILATERALLY. AV SHUNT NOTED TO RIGHT FOREARM, BRUIT AND THRILL PRESENT. ROYA CATHETER TO RIGHT FEMORAL. FLUSHING WELL. NO REDNESS OR SWELLING TO THE SITE. DRESSING IS CLEAN DRY AND INTACT. SWELLING NOTED TO LEFT LEG, PITTING +3. ELEVATED ON PILLOW. BLISTER TO LEFT LOWER EXTREMITY. ULCER TO LEFT HEEL WITH DRESSING THAT IS CLEAN DRY AND INTACT. SEVERAL FAMILY MEMBERS PRESENT AT THE BEDSIDE. PLAN OF CARE DISCUSSED WITH PT. AND FAMILY. USE OF CALL LIGHT ENCOURAGED. VERBALIZES UNDERSTANDING. WILL CONT. TO MONITOR FOR CHANGES. SAFETY AND FALL PRECAUTIONS IN PLACE. CALL LIGHT IN REACH. BED IN LOWEST LOCKED POSITION.
--- NOTE | 2017-01-23 22:07 | NUR ---
ROUNDS PT. RESTING IN BED WITH EYES CLOSED. CHEST RISE AND FALL NOTED. NO S/S OF SOB OR DISTRESS. NO FACIAL GRIMACING INDICATING PAIN. SATING WELL ON 3L NASAL CANNULA. PILLOW SUPPORT IN PLACE. DRESSING TO LEFT HEEL CLEAN DRY AND INTACT. WILL CONT. TO MONITOR FOR CHANGES. SAFETY AND FALL PRECAUTIONS IN PLACE. CALL LIGHT IN REACH.
--- NOTE | 2017-01-23 22:30 | NUR ---
CALL TO RT CALLED RT TO COME PLACE PT. ON BIPAP FOR THE NIGHT.
[2017-01-24] VITALS (7 sets, daily range): BP systolic 104–124
--- NOTE | 2017-01-24 00:32 | NUR ---
rounds pt. resting in bed with no signs of acute distress. bipap in place, pt. tolerating settings well. accucheck done, insulin coverage given per sliding scale protocol. will cont. to monitor for changes. safety and fall precautions in place, call light in reach.
--- NOTE | 2017-01-24 02:00 | NUR ---
ROUNDS PT. REFUSING BIPAP AT THIS TIME. ENCOURAGED PT. TO KEEP IT IN PLACE, BUT STATES THAT HE WOULD LIKE IT BACK ON AT 330 WHEN HE GOES BACK TO SLEEP. ENCOURAGED USE OF THE NASAL CANNULA, WHICH HE AGREED TO. SATING AT 94% WITH NASAL CANNULA ON AT 3L. WILL CONT. TO MONITOR FOR CHANGES. WATER PROVIDED TO THE PT. CALL LIGHT IN REACH.
--- NOTE | 2017-01-24 04:35 | NUR ---
rounds pt. on bipap, tolerating settings well. no signs of acute distress. will cont. to monitor for changes. safety and fall precautions in place. call light in reach.
[2017-01-24] MEDS: PIPERACILLIN/TAZO 2.25G/DEX-IS 50 ML IV SCH ×3 (05:41→17:26)
[2017-01-24] MEDS: NORMAL SALINE 5 ML DISP.SYRIN IVF SCH ×3 (05:42→21:37)
[2017-01-24] MEDS: INSULIN ASPART 100 UNITS/ML, 10 ML VIAL (NovoLOG) SUBCUT PRN ×3 (05:46→17:32)
--- NOTE | 2017-01-24 06:29 | NUR ---
CLOSING NOTES PT. RESTING IN BED QUIETLY. SATING WELL ON 3L NC. NO SIGNS OF ACUTE DISTRESS. INSULIN COVERAGE GIVEN PER SLIDING SCALE PROTOCOL. ALL NECESSARY NEEDS WERE MET THROUGHOUT THE SHIFT. SAFETY AND FALL PRECAUTIONS WERE MAINTAINED. WILL ENDORSE CARE TO AM NURSE. CALL LIGHT IN REACH.
[2017-01-24 07:44] LABS: HEMATOCRIT 30.1 % (36-54); HEMOGLOBIN 10.3 g/dL (14.0-18.0); MEAN CORPUSCULAR HEMOGLOBIN 34 pg (27-31); MEAN CORPUSCULAR HGB CONC 34 % (32-36); MEAN CORPUSCULAR VOLUME 100 fL (79.0-98.0); RED CELL DISTRIBUTION WIDTH 15.2 % (9.0-15.0); WHITE BLOOD COUNT (AUTO) 11.1 K/uL (4.8-10.8)
[2017-01-24 07:53] LABS: PLATELET COUNT (AUTO) 25 K/uL (130-430)
--- NOTE | 2017-01-24 08:00 | NUR ---
Opening Note Patient received sleeping in bed. Alert and oriented. Patient states he is sleepy and requested a urinal. Vital signs are stable. +2 Edema noted on the right foot, and +4 edema on the right foot with a medial foot ulcer. Open wound on the left lower leg. Bruise noted on the right inner thigh. Jori catheter on the inner right thigh with pigtail. Patient has no pain and is comfortably sleeping in bed. He has cardiac monitoring and SPO2 monitoring. Call light is within reach and safety precautions being monitored
[2017-01-24 08:03] LABS: CALCIUM 8.6 mg/dL (8.4-11.0); POTASSIUM 3.4 mmol/L (3.5-5.1)
[2017-01-24 08:35] LABS: CREATININE 9.42 mg/dL (0.55-1.30)
[2017-01-24] MEDS: NEPHROVITE, (FOLIC ACID/VITAMIN B COMP W-C 1 TAB) PO SCH (08:53)
[2017-01-24] MEDS: SEVELAMER HCL 800 MG TABLET PO SCH (08:54)
[2017-01-24 09:38] LABS: BAND % (MANUAL) 10 % (0-6)
[2017-01-24 09:39] LABS: BASOPHILS % (MANUAL) 0 % (0-2); EOSINOPHILS % (MANUAL) 1 % (0-7); LYMPHOCYTES % (MANUAL) 5 % (20-46); MONOCYTES % (MANUAL) 6 % (0-11)
--- NOTE | 2017-01-24 10:05 | NUR ---
Rounds Patient is resting in bed after being cleaned and changed. RT set up Bipap for patient use and patient tolerating it well. No complaints of pain or distress. Spoke with Jamilah Hollis, the . She will come to visit after [facility] today. Call light and phone placed in the patients right hand. Will continue to monitor and observe safety precautions.
--- NOTE | 2017-01-24 12:10 | NUR ---
Rounds No change in patient status. Patient is still asleep and does not want to eat lunch yet. Readjusted mask and Tolerating bipap well. no signs or symptoms of pain or acute distress. will continue to monitor and observe safety.
--- NOTE | 2017-01-24 12:25 | NUR ---
Dr Adkins Page Paged Dr Adkins regarding critical value Creatinine 9.42 and Elevated BUN 89
--- NOTE | 2017-01-24 12:48 | NUR ---
MD Returned Page notified of creatinine 9.42. No further orders.
--- NOTE | 2017-01-24 14:15 | NUR ---
Rounds Patient is sleeping in bed comfortably on 3L NC. 97% O2. No signs and symptoms of distress. Patient is clean and dry. Call light within reach and safety precautions are being observed.
--- NOTE | 2017-01-24 16:27 | NUR ---
Rounds Patient is in bed awake and comfortable. and family is at the bedside. Patient has no complaints of pain or distress. Call light within reach and safety precautions being observed. Will continue to monitor.
--- NOTE | 2017-01-24 20:54 | NUR ---
paged paged for Dr Li, dialed . s/w Mitzy.
[2017-01-24] MEDS ORDERED: IBUPROFEN 600 MG TABLET PO ONE (21:15)
[2017-01-25] VITALS (7 sets, daily range): BP systolic 98–119
[2017-01-25] MEDS: PIPERACILLIN/TAZO 2.25G/DEX-IS 50 ML IV SCH ×2 (00:26→05:23)
[2017-01-25] MEDS: INSULIN ASPART 100 UNITS/ML, 10 ML VIAL (NovoLOG) SUBCUT PRN ×4 (00:39→23:20)
[2017-01-25] MEDS: NORMAL SALINE 5 ML DISP.SYRIN IVF SCH ×3 (05:28→23:22)
[2017-01-25] MEDS: VANCOMYCIN HCL 1,500 MG in NS 250 ML IV SCH (06:22)
--- NOTE | 2017-01-25 06:45 | NUR ---
pt.presents challenge.pt.presents obese;morbid status.pt.presents;hemo dialysis;acceess:rt.femoral groin:w/pig tail pt.presents av-shunt;rt.forearm;bruit faint. has ordered to access the av-shunt:hemo dialysis session: 01/25/17.pt.presents cellulitis:lt.leg/butt.i have photographed the leg/butt:no broken skin.wound:located lt.foot: plantar:lateral aspect;i have changed the dsg.pt.presents ski tear;lt.butt:in have photogrphed the skin tear: applied dsg.pt.cleaned 2/t bowel movement:i noted wound:sacrum:i have photographed the wound and applied dsg.pt.had c/o pain.i paged .i appruised of the pt's requestedfor pain medication: ordered ibuprophen:600mg po x1.blood glucose assessess ac/hs.stbale values.pt.recieving the administration o2 2l/min via nasal cannulae pt.revieving bi-pap @night call rio w/in the pt's reach.
[2017-01-25 07:37] LABS: ALBUMIN 2.3 g/dL (3.4-4.8); CALCIUM 8.5 mg/dL (8.4-11.0); POTASSIUM 3.5 mmol/L (3.5-5.1); TOTAL BILIRUBIN 2.8 mg/dL (0.0-1.0)
[2017-01-25 07:44] LABS: CREATININE 10.82 mg/dL (0.55-1.30)
--- NOTE | 2017-01-25 08:05 | NUR ---
INITIAL ROUNDS Received pt AAOx4, no s/s resp distress, c/o pain 4/10 to left foot-given pain medication earlier, pt afebrile. Plan of care for the day reviewed with pt-pt verbalized his understanding. IVF infusing well at K[facility] to right femoral pigtail with no s/s infection to site. Noted shunt to RFA. Noted dressing to left foot wound, noted dressing to sacral area clean, dry and intact. Will reposition pt Q 2 hours with pillow support and heels off-loaded for skin care. RLE with SCD in place. Pain management, wound care and safety discussed-teach back done. Contact phone number explained, call light within reach.
[2017-01-25 08:35] LABS: WHITE BLOOD COUNT (AUTO) 15.1 K/uL (4.8-10.8)
[2017-01-25 08:49] LABS: HEMATOCRIT 32.8 % (36-54); HEMOGLOBIN 11.4 g/dL (14.0-18.0); MEAN CORPUSCULAR HEMOGLOBIN 35 pg (27-31); MEAN CORPUSCULAR HGB CONC 3 % (32-36); MEAN CORPUSCULAR VOLUME 101 fL (79.0-98.0); RED BLOOD CELL COUNT(AUTO) 3.24 MIL/uL (4.2-6.2)
[2017-01-25 08:50] LABS: RED CELL DISTRIBUTION WIDTH 34.6 % (9.0-15.0)
[2017-01-25 08:56] LABS: BASOPHILS # (AUTO) 0.2 K/uL (0.0-0.2); EOSINOPHILS # (AUTO) 0.3 K/uL (0.0-0.4); EOSINOPHILS % (AUTO) 2.1 % (0.0-4.0); LYMPHOCYTES # (AUTO) 0.8 K/uL (1.0-5.5); LYMPHOCYTES % (AUTO) 5.1 % (20.5-51.5); MONOCYTES # (AUTO) 0.9 K/uL (0.0-1.0); MONOCYTES % (AUTO) 6.1 % (1.7-9.3); NEUTROPHILS # (AUTO) 12.9 K/uL (1.8-7.7); NEUTROPHILS % (AUTO) 85.6 % (40.0-70.0)
[2017-01-25] MEDS: NEPHROVITE, (FOLIC ACID/VITAMIN B COMP W-C 1 TAB) PO SCH (09:19)
[2017-01-25] MEDS: SEVELAMER HCL 800 MG TABLET PO SCH (09:20)
[2017-01-25] MEDS: HYDROcodone/ACETAMIN 5-325 MG TAB (NORCO/ VICODIN) PO PRN ×2 (10:00→17:47)
--- NOTE | 2017-01-25 10:00 | NUR ---
P.T. NOTES RECEIVED P.T. EVAL ORDER, CHART REVIEWED AND RECEIVED CLEARANCE FROM [facility] FOR P.T. EVAL, UPON P.T. ARRIVAL PT ASLEEP BUT EASILY ROUSABLE, PT ENCOURAGED TO PARTICIPATE WITH P.T , PT GAVE VARIOUS REASONS NOT TO PARTICIPATE, "I JUST ATE." " LETS DO IT AFTER MY DIALYSIS" " I DON'T WALK GOOD BECAUSE OF MY BACK 3 YEARS AGO." WHEN P.T. SAID PER CHART HE WAS INDEPENDENT AMBULATORY PRIOR TO HOSPITAL ADMISSION HE REPLIED " WELL I DO BUT I STRUGGLE." THIS P.T. WENT ON TO FURTHER EDUCATE PATIENT ON POSSIBLE SECONDARY COMPLICATIONS FROM HAVING BEEN IN BED, YET PT CONTINUES TO REFUSE,NO CONSENT FOR CARE GIVEN. OFFERED TO SEE PATIENT AT A LATER TIME SOMETIME TODAY. PVE Addendum: 01/25/17 at 1504 by Nehal Kelly PT 1320 2ND ATTEMPT TO SEE Pt FOR PT EVAL TODAY; Pt WAS ASLEEP BUT EASILY ROUSABLE; INITIALLY AGREED TO PARTICIPATE WITH PT EVAL BUT REFUSED UPON GETTING Pt READY TO ASSIST IN SITTING. Pt WAS EDUCATED ON PURPOSE OF PT EVAL AND TO JUST PERFORM TOLERATED BUT STILL REFUSED AND STATES, "YOU ARE DOING SOMETHING AGAINST MY WILL." PT EVAL DEFERRED TODAY DUE TO REFUSAL, BUT Pt WILL TRY PARTICIPATE TOMORROW IF HE FEELS BETTER. RN NOTIFIED. PVE(1)
--- NOTE | 2017-01-25 10:00 | NUR ---
ROUNDS Pt c/o pain 4/10 to left foot, pt repositioned for comfort. Pt given [place] as ordered.
[2017-01-25 10:11] LABS: PLATELET COUNT (AUTO) 26 K/uL (130-430)
[2017-01-25] MEDS: cefTRIAXone 1 GM in D5W 50 ML IV SCH (11:14)
--- NOTE | 2017-01-25 12:30 | NUR ---
ROUNDS Pt resting quietly in bed with no s/s resp distress, no further c/o pain or discomfort. Pt's fingerstick 223-will give Insulin as ordered per sliding scale. All precautions remain in place, call light within reach.
--- NOTE | 2017-01-25 15:37 | NUR ---
Nutrition F/U Admitting Diagnosis Febrile Illness Reviewed Pertinent Medical/Surgical Hx Medical Record Patient Primary RN Medical History Comment: Lower Left Extremity Cellulitis, ESRD on HD, DM, Chronic Thrombocytopenia, Morbid Obesity, SELINA, Hypotension, Respiratory Failure, Sepsis per MD notes. Subjective Information [facility]. Pt lunch tray served, but untouched. Pt stated he's not hungry yet. +coughing, +nasal cannula, +pale skin color Per RN, pt is for dialysis today, POC BG 223H, pt is sleepy because of pain medicine administered not too long ago. Per EMR, abd is firm and distended w/ hypoactive bowel sounds. I/O: 850/300 +550ml, IV total intake 10ml per 12 hrs. PO intake: 60% average of 3 meals 01/24/17. Pt is not yet meeting optimal nutrition w/ current PO intake. Pt is not yet appropriate for nutrition education. Current Diet Order/Nutrition Support CCHO diet Patient/Significant Other Able To Verbalize Education Provided Not Indicated Pertinent Medications vancomycin HCl, nephrovite, ceftriaxone Na/D5W IV at 100ml/hr (408 kcal/day), SSI, zofran Pertinent Labs BG 205 H, BUN 94 H, CRE 10.82 H, WBC 15.1 H, RBC 3.24 L, H/H 11.4L/32.8L, Plt Count 26L, Na 134 L, POC BG 200H, Total Bilirubin 2.8H, AST 119 H, ALT 416 H, Alb 2.3L Height (Feet) 5 feet Height (Inches) 9.00 inches Weight (Pounds) 337 pounds Weight (Calculated Kilograms) 153.36161 kilograms Patient Weight 153.18 kg Body Mass Index 49.8 kg/m2 %IBW 211 [place]/Adjusted Body Weight 160 lbs, 73 kg.; Adj IBW for Obesity: 204 lbs, 93 kg. Recent Weight Change No - per EMR Weight Status Morbidly Obese Last BM Jan 25, 2017 Usual Diet At Home Regular diet Skin Integrity Comment: Zackary scale: 13; per nursing notes: Left foot:wound; 2+ pitting edema of bilateral leg; 2+ pitting edema of L leg Current % PO Fair 60% PO intake Estimated Energy Expenditure (kcals/day) 5005-9573 kcal/day (BEE x 1.2-1.5 IBW for Sepsis) Estimated Protein Required (g/day) 87-95 gm/day (1.2-1.3 gm/kg IBW for ESRD on HD) Estimated Fluid Required (l/day) per MD (ESRD) Problem/Etiology/Signs/Symptoms Increased nutritional needs related to metabolic demands as evidenced by elevated WBC and estimated nutritional needs for sepsis. *ongoing Expected Outcomes/Goals Monitor pt appetite and intake w/ goal of pt meeting 80% of estimated nutritional needs, labs trending WNL, normal GI function, skin integrity/wt maintenance. Dietitian Recommendations *Recommend continuing [facility] diet Follow Up High Risk: F/U in 2-3days
--- NOTE | 2017-01-25 15:48 | NUR ---
WOUND RE-EVALUATION: Patient received in a Maddie Bed with an IsoFlex MARY mattress, awake, drowsy, and oriented. Patient is able to turn in bed independently. Zackary Score is a 13. Intrinsic factors that delay wound healing: Diabetes mellitus, hypoalbuminemia. Extrinsic factors that delay wound healing: Decreased mobility. Microbiology: Blood culture times 2 results in progress. Wound Assessment: Wound care performed by overnight babysitter nurse this morning. Dressing not removed for assessment, secondary to doing so would decrease wound temperature and retard wound healing rate. 1. Left foot, fifth metatarsal head, plantar and lateral aspects: Diabetic/neuropathic foot ulcer, present on admission. Recommend continue: Cleanse wound with normal saline. Put sure prep on periwound. Apply therapy on the gel onto wound bed and callused portion of wound. Her with foam dressing. Perform wound care daily, and as needed for dressing soiling or dislodgment. 2. Left lateral lower extremity, mid calf level: Closed below present with purple discoloration, present on admission. Recommend continue: No dressing needed. Continue to monitor site every shift. Contact physician if area worsens. Also recommend continue: Encourage and assist patient as needed with repositioning every 2 hours with pillow support and off-load pressure areas with pillows for pressure re-distribution. Offload, elevate and float bilateral heels with pillows. Perform skin care and monitor skin integrity Q shift. Use moisture barrier cream on buttocks and other moisture susceptible areas QID and as needed for soiling. Recommend surgical consult for possible debridement.
--- NOTE | 2017-01-25 16:18 | NUR ---
ROUNDS Pt now on Dialysis, resting quietly with no c/o pain or discomfort. Call light within reach, poured wall foreman at bedside.
--- NOTE | 2017-01-25 18:45 | NUR ---
CLOSING NOTE Pt in bed visiting with his with no s/s resp distress, no c/o pain or discomfort. Dialysis completed with 2L out per renal medicine physician. Pt given dialysis via RFA shunt with no problems per renal medicine physician. Needs met, call light within reach.
--- NOTE | 2017-01-25 19:45 | NUR ---
initial notes pt. received resting in bed. alert and oriented. no s/s of sob or distress. vss. sating well on 3l nasal cannula. av shunt to right forearm with bruit and thrill present. right femoral miguel cath noted. no redness or swelling to the site with dressing clean and intact. blister to right lower extremity covered with dressing that is clean dry and intact. dressing to right heel intact. heels floating on pillow. pt. repositioned in bed with pillow support provided. able to help with turning. is at the bedside. plan of care discussed, use of call light encouraged. will cont. to monitor for changes. safety and fall precautions in place. call light in reach. bed alarm on. Addendum: 01/25/17 at 2055 by Katelynn Patel RN pt is to be placed on low airloss mattress, will move pt. when assistance is available to move the pt.
--- NOTE | 2017-01-25 21:41 | NUR ---
md call call to dr perry, vacation planner on the case to inform him that pt. was sinus rhythm at the start of shift and pt. is now in uncontrolled afib with heart rate in the 120s-130s. pt. stable and shows no signs of acute distress.
--- NOTE | 2017-01-25 21:51 | NUR ---
md call back md gave orders for new scheduled meds. will input and carry out. Addendum: 01/25/17 at 2302 by Katelynn Patel RN md aware pt had dialysis today.
[2017-01-25] MEDS ORDERED: ASPIRIN 81 MG TAB.CHEW PO SCH (22:00)
[2017-01-25] MEDS ORDERED: METOPROLOL SUCCINATE 50 MG TAB.SR.24H (TOPROL XL) PO SCH (22:00)
--- NOTE | 2017-01-25 22:30 | NUR ---
rounds pt. in stable condition. heart rhythm remains in a fib. no signs of acute distress. pt. repositioned in bed for comfort. pillow support provided and heels floating. will cont. to monitor for changes. safety and fall precautions in place. call light in reach.
--- NOTE | 2017-01-26 00:02 | NUR ---
rounds pt. placed on LEWIS. pillow support provided. no signs of acute distress. refusing bipap at this time, but sating well on 3L NC. states he will want the bipap later. wants scd removed at this time to right leg. heels floating on pillow. will cont. to monitor for changes. safety and fall precautions in place. call light in reach.
[2017-01-26] MEDS: HYDROcodone/ACETAMIN 5-325 MG TAB (NORCO/ VICODIN) PO PRN ×2 (00:46→09:46)
--- NOTE | 2017-01-26 02:20 | NUR ---
rounds pt. resting in bed with no signs of acute distress. no complaints of pain. will cont. to monitor. call light in reach.
--- NOTE | 2017-01-26 03:35 | NUR ---
rn notes pt refusing bipap. sating at 96% on 3L NC. will cont. to monitor.
[2017-01-26 04:10] VITALS: BP_SYST 95
--- NOTE | 2017-01-26 04:26 | NUR ---
rounds pt. agreed to put bipap on. no signs of acute distress at this time. tolerating bipap settings well. will cont. to monitor. call light in reach.
[2017-01-26] MEDS: NORMAL SALINE 5 ML DISP.SYRIN IVF SCH ×3 (06:25→21:15)
[2017-01-26] MEDS: INSULIN ASPART 100 UNITS/ML, 10 ML VIAL (NovoLOG) SUBCUT PRN ×4 (06:27→23:24)
--- NOTE | 2017-01-26 06:34 | NUR ---
closing notes pt resting in bed. no signs of acute distress. denies pain at this time. dressing change done to left foot, wound open, wound bed pink, with red drainage. no odor noted. cleansed with NS, honey get applied with foam dressing. blister to left heel cleansed with ns, foam dressing applied as there is some oozing. heels floating on pillow. blood sugar covered with 2 units of novolog per sliding scale. all necessary needs were met throughout the shift, safety and fall precautions were maintained. will endorse care to am nurse. call light in reach.
[2017-01-26 08:01] LABS: ALBUMIN 2.1 g/dL (3.4-4.8); CALCIUM 8.2 mg/dL (8.4-11.0); POTASSIUM 3.4 mmol/L (3.5-5.1); TOTAL BILIRUBIN 2.5 mg/dL (0.0-1.0)
--- NOTE | 2017-01-26 08:10 | NUR ---
Opening note Pt resting in bed, sitting, eating breakfast. Not s/s of SOB or discomfort, pt states that he has no pain at this time. Quiton catheter present (femoral) and AV shunt visualized. No Iv access. Safety and fall precautions in place with bed in the lowest position, bed alarm on and call light within reach. Pt agrees to call for any needed assistance.
[2017-01-26 08:19] LABS: HEMATOCRIT 32.8 % (36-54); HEMOGLOBIN 11.2 g/dL (14.0-18.0); MEAN CORPUSCULAR HEMOGLOBIN 35 pg (27-31); MEAN CORPUSCULAR HGB CONC 34 % (32-36); MEAN CORPUSCULAR VOLUME 101 fL (79.0-98.0); RED BLOOD CELL COUNT(AUTO) 3.24 MIL/uL (4.2-6.2); RED CELL DISTRIBUTION WIDTH 15.6 % (9.0-15.0); WHITE BLOOD COUNT (AUTO) 27.2 K/uL (4.8-10.8)
[2017-01-26 08:22] LABS: CREATININE 8.99 mg/dL (0.55-1.30)
--- NOTE | 2017-01-26 08:22 | NUR ---
Critical Value Reported Paged Dr Choi with critical value of Cr 8.99.
[2017-01-26 08:35] VITALS: BP_SYST 108
[2017-01-26 08:55] LABS: PLATELET COUNT (AUTO) 36 K/uL (130-430)
[2017-01-26] MEDS: METOPROLOL SUCCINATE 50 MG TAB.SR.24H (TOPROL XL) PO SCH (09:00)
[2017-01-26] MEDS: NEPHROVITE, (FOLIC ACID/VITAMIN B COMP W-C 1 TAB) PO SCH (09:34)
[2017-01-26] MEDS: SEVELAMER HCL 800 MG TABLET PO SCH (09:35)
[2017-01-26] MEDS: ASPIRIN 81 MG TAB.CHEW PO SCH (09:42)
--- NOTE | 2017-01-26 09:43 | NUR ---
Held medication Due to low blood pressure and pt pain level, administered norco before pt and help toporol, will reassess bp and administer at later time. Addendum: 01/26/17 at 1051 by Ernestina Love RN REEVALUATED BLOOD PRESSURE AND HOLDING MEDICATION BECAUSE IT IS LOW 84/42
--- NOTE | 2017-01-26 10:20 | NUR ---
ROUNDING NOTE Pt resting, found with O2 off after physical therapy, reapplied NC and O2 raised to >90. Pt c/o being tired after physical therapy but no s/s of discomfort or shortness of breath. Safety and fall precautions in place with bed in lowest position, bed alarm on and call light within reach.
[2017-01-26] MEDS: cefTRIAXone 1 GM in D5W 50 ML IV SCH (10:23)
[2017-01-26 11:21] VITALS: BP_SYST 100
[2017-01-26 11:43] LABS: BAND % (MANUAL) 10 % (0-6)
[2017-01-26 11:44] LABS: ATYPICAL LYMPHOCYTES % 1 % (0-0); BASOPHILS % (MANUAL) 0 % (0-2); EOSINOPHILS % (MANUAL) 2 % (0-7); LYMPHOCYTES % (MANUAL) 2 % (20-46); MONOCYTES % (MANUAL) 5 % (0-11)
--- NOTE | 2017-01-26 11:55 | NUR ---
Robert Did ACHS check and administered insulin, assisted pt with lunch set up. He is sitting in bed w/ no s/s of SOB nor c/o pain. O2 is administered via NC and safety and fall precautions are in place with bed in lowest position with bed alarm on and call light within reach. Pt verbalizes agreement that he will call for any assistance needed.
--- NOTE | 2017-01-26 13:50 | NUR ---
Dr. Francis rounds/removal of Jori cath Dr. Francis here to see the patient informed of orders to remove Jori catheter and to assess diabetic ulcer on left foot. Dr. Francis removed the Jori Catheter, patient had some bleeding, sterile gauze was used to hold manual pressure over the site for 10 minutes, after 10 minutes the site was no longer bleeding, instructed the patient to notify nurse if there is further bleeding, patient verbalized understanding, call light placed in the patient's hand. Dr. Francis also assessed the diabetic ulcer and order for a NM Bone scan of the left lower extremity, patient bed in lowest position, three side rails up, bed alarm on, fall and aspiration precautions in place.
--- NOTE | 2017-01-26 13:55 | NUR ---
Wound care note Wound Assessment: 1. Left foot, fifth metatarsal head, plantar and lateral aspects: Diabetic/neuropathic foot ulcer, present on admission. Wound care done early by NOC shift nurse, Dr Francis removed dressing to asses the wound and removed the top scab and ordered a bone scan to further evaluate the wound, 2. Left lateral lower extremity, mid calf level: Closed below present with purple discoloration, present on admission. Continued monitoring, no dressing needed, open to air.. Assisting patient with repositioning every 2 hours with pillow support and off-load pressure areas with pillows for pressure re-distribution. Offloading, elevating and floating bilateral heels with pillows. Performing skin care and monitoring skin integrity Q shift. Using moisture barrier cream on buttocks and other moisture susceptible areas QID and as needed.
--- NOTE | 2017-01-26 14:00 | NUR ---
IV Insertion Complaining of pain to IV site. Restarted on Left forearm 22G. Successful after 2 attempts. Saline locked. Will observe for any signs of infiltration. IV restarted by Steve PANG.
--- NOTE | 2017-01-26 14:44 | NUR ---
Bone Scan Rescheduled for 01/27/17 April called to say that it is too late in the day to begin the process for pt bone scan of L foot. States that there is no problem with him eating and receiving morning meds. I asked if they could transfer by bed, as the patient is reluctant to stand/walk and I am unsure of his ability to transfer. She stated that by bed is not a possibility because of constraints of room. Told her I would inform the NOC shift nurse.
[2017-01-26 15:58] VITALS: BP_SYST 92
--- NOTE | 2017-01-26 16:10 | NUR ---
Rounding Notes Pt resting with no s/s of sob or discomfort, easily arouse by voice. Femoral catheter remains without any bleeding. Safety and fall precautions in place with bed in lowest position, bed alarm in place and call light within reach.
--- NOTE | 2017-01-26 18:02 | NUR ---
Rounding Note Pt resting comfortably with family at bedside. Blood glucose check completed and insulin coverage provided. Bed left in the lowest position with the bed alarm on. Pt and family verbally agreed to call for any assistance.
[2017-01-26 18:09] LABS: HEMATOCRIT 33.3 % (36-54); HEMOGLOBIN 11.5 g/dL (14.0-18.0); MEAN CORPUSCULAR HEMOGLOBIN 35 pg (27-31); MEAN CORPUSCULAR HGB CONC 34 % (32-36); MEAN CORPUSCULAR VOLUME 101 fL (79.0-98.0); PLATELET COUNT (AUTO) 50 K/uL (130-430); RED BLOOD CELL COUNT(AUTO) 3.31 MIL/uL (4.2-6.2); WHITE BLOOD COUNT (AUTO) 26.8 K/uL (4.8-10.8)
--- NOTE | 2017-01-26 18:53 | NUR ---
Closing Note Pt ALOC x 4 with family at bedside. Pt has no s/s of sob and remains on O2 (2L) via NC, has no c/o of pain but is uncomfortable in the bed. Pt requested at 1830 to be moved to the chair. Pt is unsure if he can stand and refused to attempt to stand with PT today. I explained to pt that I was unable to move him at this time. Bone scan scheduled for tomorrow on L Foot wound. Wound dressed early this morning and then attended to by Dr Francis early this shift. Blistered area on back of L leg left open but needs to be monitored, is unsure if it looks better or not. Last glucose check indicated glucose level of 210 and coverage was administered. Safety and fall precautions in place with bed in lowest position, bed alarm on and call light within reach. Endorsed pt to NOC shift nurse.
[2017-01-26 19:19] LABS: BAND % (MANUAL) 13 % (0-6); BASOPHILS % (MANUAL) 0 % (0-2); EOSINOPHILS % (MANUAL) 1 % (0-7); LYMPHOCYTES % (MANUAL) 7 % (20-46); MONOCYTES % (MANUAL) 3 % (0-11)
[2017-01-26 20:00] VITALS: BP_SYST 117
--- NOTE | 2017-01-26 20:00 | NUR ---
Initial Notes Received patient resting in bed, drowsy but alert and oriented, at bedside. Patient denies any acute distress or pain at this time. Vital signs stable. Breathing is even and unlabored on room air. IV site patent/clean/dry. Wound noted left foot and left lower leg posterior, dressings clean/dry/intact. Educated patient regarding use of call light for assistance and fall precautions, patient verbalized understanding. Needs addressed, patient repositioned for comfort. Call light in hand, will continue to monitor.
--- NOTE | 2017-01-26 22:00 | NUR ---
Rounds Patient resting in bed with eyes closed, easily aroused. Patient denies any acute distress or pain at this time. Breathing is even and unlabored. Needs addressed, patient repositioned for comfort. Call light in hand, fall precautions in place. Will continue to monitor.
[2017-01-27] VITALS (7 sets, daily range): BP systolic 98–128
--- NOTE | 2017-01-27 | NUR ---
Rounds Patient resting in bed with eyes closed, easily aroused. Patient denies any acute distress, pain, or needs at this time. Breathing is even and unlabored on bipap. Patient repositioned for comfort. Call light in hand, fall precautions in place.
--- NOTE | 2017-01-27 02:00 | NUR ---
Rounds Patient resting in bed with eyes closed, easily aroused. Patient refusing bipap at this time, patient placed back on nasal canula. Patient denies any acute distress or pain. Breathing is even and unlabored. Needs addressed, repositioned for comfort. Call light in hand.
--- NOTE | 2017-01-27 04:16 | NUR ---
Rounds Patient resting in bed with eyes closes, easily aroused. Patient denies any acute distress or pain at this time. Breathing is even and unlabored on nasal canula. Patient needs addressed, repositioned. Call light in hand, fall precautions in place.
[2017-01-27] MEDS: NORMAL SALINE 5 ML DISP.SYRIN IVF SCH ×3 (06:05→23:04)
[2017-01-27] MEDS: VANCOMYCIN HCL 1,500 MG in NS 250 ML IV SCH (06:06)
[2017-01-27] MEDS: INSULIN ASPART 100 UNITS/ML, 10 ML VIAL (NovoLOG) SUBCUT PRN ×3 (06:19→17:50)
--- NOTE | 2017-01-27 06:37 | NUR ---
Closing Notes Patient resting in bed with eyes closed, easily aroused, family at bedside. Patient denies any acute distress or pain at this time. Breathing is even and unlabored on 2L NC. IV site patent/clean/dry, no S/S infection/infiltration noted. Wound care and dressing change provided. Needs addressed throughout shift. Call light in hand, fall precautions in place. Will continue to monitor for changes and safety, and endorse all patient care/needs to oncoming nurse.
--- NOTE | 2017-01-27 07:30 | NUR ---
INITIAL NOTE: RECEIVED PATIENT FROM MATERIALS PLANNER NURSE, PATIENT RESTING IN BED, PATIENT ALERT AND ORIENTED X 2, PATIENT IS CURRENTLY ON 2L OF O2 NC, PATIENT HAS IV ON LEFT FOREARM WITH ANTIBIOTICS INFUSING, NO SIGNS OF INFILTRATION, BRUISING NOTED ON RIGHT FEMORAL AREA, DUE TO ROYA CATHETER REMOVAL YESTERDAY, WOUNDS NOTED ON LOWER LEFT LEG AND LEFT FOOT, INSTRUCTED PATIENT TO USE CALL PERLA IF ASSISTANCE IS NEEDED, PATIENT VERBALIZED UNDERSTANDING, CALL PERLA LEFT WITHIN REACH OF PATIENT'S HAND, BED IN LOW POSITION. BED ALARM IN USE. FALL RISK PRECAUTIONS IN PLACE, WILL CONTINUE TO MONITOR.
[2017-01-27 07:39] LABS: BASOPHILS # (AUTO) 0.4 K/uL (0.0-0.2); BASOPHILS % (AUTO) 1.6 % (0.0-2.0); EOSINOPHILS # (AUTO) 0.4 K/uL (0.0-0.4); EOSINOPHILS % (AUTO) 1.4 % (0.0-4.0); HEMATOCRIT 34.6 % (36-54); HEMOGLOBIN 11.9 g/dL (14.0-18.0); LYMPHOCYTES % (AUTO) 3.6 % (20.5-51.5); MEAN CORPUSCULAR HEMOGLOBIN 35 pg (27-31); MEAN CORPUSCULAR HGB CONC 35 % (32-36); MEAN CORPUSCULAR VOLUME 101 fL (79.0-98.0); MONOCYTES % (AUTO) 7.3 % (1.7-9.3); NEUTROPHILS # (AUTO) 23.6 K/uL (1.8-7.7); NEUTROPHILS % (AUTO) 86.1 % (40.0-70.0); RED BLOOD CELL COUNT(AUTO) 3.43 MIL/uL (4.2-6.2); WHITE BLOOD COUNT (AUTO) 27.4 K/uL (4.8-10.8)
[2017-01-27 07:44] LABS: CALCIUM 8.3 mg/dL (8.4-11.0); POTASSIUM 3.9 mmol/L (3.5-5.1)
[2017-01-27 07:56] LABS: CREATININE 10.25 mg/dL (0.55-1.30)
[2017-01-27] MEDS: METOPROLOL SUCCINATE 50 MG TAB.SR.24H (TOPROL XL) PO SCH (08:18)
[2017-01-27] MEDS: NEPHROVITE, (FOLIC ACID/VITAMIN B COMP W-C 1 TAB) PO SCH (09:17)
[2017-01-27] MEDS: SEVELAMER HCL 800 MG TABLET PO SCH (09:17)
[2017-01-27] MEDS: ASPIRIN 81 MG TAB.CHEW PO SCH (09:18)
[2017-01-27] MEDS: cefTRIAXone 1 GM in D5W 50 ML IV SCH (09:19)
--- NOTE | 2017-01-27 09:22 | NUR ---
PATIENT RECEIVING DIALYSIS AT THIS TIME. NO PAIN MEDICATION GIVEN AT THIS TIME DUE TO LOW BP. PATIENT TOLERATING PAIN, RATED 4/10. IVPB ROCEPHIN SCANNED AND GIVEN TO DIALYSIS NURSE, DIMITRI TO ADMINISTER. WILL CONTINUE TO MONITOR.
[2017-01-27 10:16] LABS: PLATELET COUNT (AUTO) 38 K/uL (130-430)
--- NOTE | 2017-01-27 10:36 | NUR ---
RN ROUNDS PATIENT'S IS CURRENTLY RECEIVING HEMODIALYSIS, BP IS LOW, 89/48, DR. VICK IS AWARE AND PER HEMODIALYSIS NURSE, DR. VICK ORDERED TO CONTINUE HEMODIALYSIS SINCE PATIENT IS STABLE AND TOLERATING WELL JUST DO NOT PULL FLUIDS FROM PATIENT, PATIENT IS IN STABLE CONDITION, AROUSABLE, WILL CONTINUE TO MONITOR, FALL PRECAUTIONS IN PLACE, WILL CONTINUE TO MONITOR.
--- NOTE | 2017-01-27 12:33 | NUR ---
RN NOTE: PATIENT COMPLETED DIALYSIS. 300CC OUT. BP STABLE 101/43 LT UPPER ARM. MEAL TRAY SET UP FOR LUNCH. FALL PRECAUTIONS IN PLACE. CALL PERLA WITHIN REACH. BED IN LOW POSITION. WILL CONTINUE TO MONITOR.
[2017-01-27] MEDS: HYDROcodone/ACETAMIN 5-325 MG TAB (NORCO/ VICODIN) PO PRN (13:21)
--- NOTE | 2017-01-27 13:25 | NUR ---
PT NOTES CHART REVIEWED AND CLEARED FOR PT BY RN. PATIENT UNABLE TO SEE IN MORNING D/T HD PROCEDURE AT THIS TIME, WILL RETURN AT LATER TIME FOR PHYSICAL THERAPY ATTEMPT. RETURNED TO PATIENTS ROOM AND PATIENT HAS COMPLETED HD PROCEDURE AND CURRENTLY WITH FAMILY AT BEDSIDE VISITING. PATIENT DECLINES PARTICIPATION D/T FATIGUE AND PAIN EXPRESSED BY PATIENT. 01/17 EXPRESSED BY PATIENT, RN MADE AWARE AND WILL MEDICATE ACCORDINGLY. PATIENT ASKED IF POSSIBLE TO RESUME TOMORROW IF POSSIBLE. TRAY AND CALL LIGHT IN REACH, RN AT BEDSIDE. PATIENT COOPERATIVE AND APPRECIATIVE OF PT CARE. PVEx2 Addendum: 01/27/17 at 1346 by Marlee Bennett PT PHYSICAL THERAPY CO-SIGN The Physical Therapy Progress Notes documented by Strategic Partner Development Manager have been reviewed. Reviewed/Co-Signed by: Marlee Bennett PT Documentation Done by: Garrett Mcgrath PTA
--- NOTE | 2017-01-27 13:44 | NUR ---
RN ROUND PATIENT IN BED RESTING COMFORTABLY, POST HEMODIALYSIS. ON 2L O2 VIA N/C. SR ON TELE MONITOR. FALL PRECAUTIONS IN EFFECT. CALL PERLA WITHIN REACH. BED IN LOW POSITION. SIDE RAILS UP X 2. BED ALARM ON. WILL CONTINUE TO MONITOR.
[2017-01-27] MEDS: GABAPENTIN 100 MG CAPSULE PO SCH ×2 (15:18→20:25)
--- NOTE | 2017-01-27 15:30 | NUR ---
RN ROUNDS ASSISTED WOUND NURSE IN REASSESSMENT OF WOUND ON SACRUM AND LEFT LOWER LEG AND LT FOOT. PATIENT ABLE TO ASSIST MINIMALLY WITH TURNING BY HOLDING ONTO SIDE RAIL. TOLERATED WELL. TURNED PATIENT ONTO LEFT SIDE, SUPPORTED BY PILLOWS. LEFT LEG AND HEEL OFF LOADED WITH PILLOW. RESTING COMFORTABLY. PATIENT ON 2L O2 VIA N/C. SR ON TELE MONITOR. FALL PRECAUTIONS IN EFFECT. PATIENT CALL PERLA WITHIN REACH. BED IN LOW POSITION. SIDE RAILS UP X 3. WILL CONTINUE TO MONITOR.
--- NOTE | 2017-01-27 15:35 | NUR ---
WOUND RE-EVALUATION: Patient received in a Maddie Bed with an IsoFlex MARY mattress with low air loss therapy initiated, awake, drowsy, and oriented. Patient is able to turn in bed, needs a lot of assist. Zackary Score is a 13. Intrinsic factors that delay wound healing: Diabetes mellitus, hypoalbuminemia. Extrinsic factors that delay wound healing: Decreased mobility. Microbiology: Blood culture times 2 results in progress. Wound Assessment: 1. Left foot, fifth metatarsal head, plantar and lateral aspects: Diabetic/neuropathic foot ulcer, present on admission. No odor, no drainage. Measures 1.5 cm x 1.7 cm. Recommend: No dressing needed. Continue to monitor sites every shift. Elevate, offload and flow bilateral heels with pillows lengthwise at all times. 2. Left medial lower extremity, mid calf level: Partially open bulla with purple discoloration, present on admission. Open area, visible tissue is 95% yellow tissue, 5% red tissue. No odor, scant sanguineous drainage. Measures 9.5 cm x 5.1 cm. Extremity is edematous. 3. Left medial lower extremity, mid calf level, superior and anterior to site 2: Closed bulla present with purple discoloration. No odor, no drainage. Measures 1.5 cm x 0.7 cm. Extremity is edematous. 4. Left medial lower extremity, mid calf level, distal to site 2: Closed bulla present with purple discoloration. No odor, no drainage. Measures 3.0 cm x 3.0 cm. Extremity is edematous. 5. Left lateral lower extremity, mid calf level: Partially open bulla with purple discoloration. Open area, visible tissue is yellow. No odor, no drainage. Measures 9.0 cm x 7.0 cm. Extremity is edematous. Recommend continue: Cleanse involved areas with normal saline. Pat dry. Put Venelex ointment onto open areas. Put sure prep onto beth-wound. Put oil emulsion dressings over entire bullae sites, then cover with non-adhesive foam dressings. Wrap with beau wrap. Perform wound care daily, and as needed for dressing soiling or dislodgment. 6. Gluteal sulcus: Moisture associated lesion. Wound bed is 90% red tissue 10% pink tissue. No odor, no drainage. Periwound intact. Measures 2.5 cm x 1.0 cm. Recommend: Cleanse wound with normal saline. Pat dry. Apply calmoseptine cream onto wound and periwound. Cover any portion of wound not covered by calmoseptine with hydrogel. Cover with foam dressing. Perform wound care daily, and as needed for dressing soiling or dislodgment. Also recommend continue: Encourage and assist patient as needed with repositioning [id number] only every hour with pillow support, and off-load pressure areas with pillows for pressure re-distribution. Offload, elevate and float bilateral heels with pillows. Perform skin care and monitor skin integrity Q shift. Use moisture barrier cream on buttocks and other moisture susceptible areas QID and as needed for soiling. Recommend surgical consult for possible debridement.
--- NOTE | 2017-01-27 17:50 | NUR ---
RN ROUNDS PATIENT BG FINGERSTICK WAS 198. GAVE NOVOLOG 2 UNITS SQ RLQ. DINNER TRAY SET UP. PT DROWSY. , DINESH AT BEDSIDE. ENCOURAGED TO EAT DINNER. TO FEED. PT CONTINUES ON 2L O2 VIA N/C. SR ON TELE MONITOR. FALL PRECAUTIONS IN EFFECT. BED IN LOW POSITION. SIDE RAILS UP X 3. CALL PERLA WITHIN REACH. WILL CONTINUE TO MONITOR.
--- NOTE | 2017-01-27 18:34 | NUR ---
DR. LOMBARDI NOTIFIED THAT PATIENT IS HAVING 1-1.5 SEC PAUSES AND DROPPING INTO 40S, DR. LOMBARDI STATED THAT HE WILL JUST CONTINUE TO MONITOR PATIENT, NO NEW ORDERS GIVEN
--- NOTE | 2017-01-27 18:40 | NUR ---
CLOSING NOTE PATIENT EATING DINNER, FED BY . FAMILY ALSO AT BEDSIDE. PATIENT STABLE, RESTING COMFORTABLY. FALL PRECAUTIONS IN PLACE. CALL PERLA WITHIN REACH. SIDE RAILS UP X 3. BED IN LOW POSITION. WILL ENDORSE CARE TO SHEET METAL MECHANIC RN.
--- NOTE | 2017-01-27 19:45 | NUR ---
Initial Notes Patient awake, able to make needs known. Patient denies pain at this time. No SOB noted. IV site patent, flushes well. Patient recently cleaned and repositioned with help of SOLE MOLDING MACHINE OPERATOR. Goal of pain management, renal stability and safety this shift. Call light within reach. Will continue to monitor.
[2017-01-27] MEDS: ACETAMINOPHEN 325 MG TABLET PO PRN (20:25)
--- NOTE | 2017-01-27 22:14 | NUR ---
Notes Patient sleeping at this time. No s/s of pain, recently medicated with pain medicine. IV site patent, flushes well. Call light within reach. Will continue to monitor.
--- NOTE | 2017-01-28 | NUR ---
Notes Patient sleeping at this time. No s/s of pain noted. Will check blood sugar. No SOB noted. Afebrile. IV site patent, flushes well. Call light within reach. Will continue to monitor.
[2017-01-28] MEDS: INSULIN ASPART 100 UNITS/ML, 10 ML VIAL (NovoLOG) SUBCUT PRN ×4 (00:36→17:30)
[2017-01-28 00:38] VITALS: BP_SYST 101
--- NOTE | 2017-01-28 02:15 | NUR ---
Notes Patient sleeping at this time. No s/s of pain. IV site patent, flushes well. Call light within reach. Will continue to monitor.
--- NOTE | 2017-01-28 04:19 | NUR ---
Notes Patient sleeping at this time. No s/s of pain noted. No SOB noted. Afebrile. IV site patent, flushes well. Call light within reach. Will continue to monitor.
[2017-01-28 05:26] VITALS: BP_SYST 97
[2017-01-28] MEDS: NORMAL SALINE 5 ML DISP.SYRIN IVF SCH ×3 (06:05→21:38)
--- NOTE | 2017-01-28 06:24 | NUR ---
Closing Notes Patient denies pain at this time. No SOB noted. IV site patent, flushes well. Goal of pain management, renal stability and safety met. Call light within reach. Will continue to monitor.
[2017-01-28 07:21] LABS: BASOPHILS # (AUTO) 0.3 K/uL (0.0-0.2); BASOPHILS % (AUTO) 1.6 % (0.0-2.0); EOSINOPHILS # (AUTO) 0.2 K/uL (0.0-0.4); HEMATOCRIT 30.6 % (36-54); HEMOGLOBIN 10.4 g/dL (14.0-18.0); LYMPHOCYTES # (AUTO) 1.1 K/uL (1.0-5.5); LYMPHOCYTES % (AUTO) 5.3 % (20.5-51.5); MEAN CORPUSCULAR HEMOGLOBIN 34 pg (27-31); MEAN CORPUSCULAR HGB CONC 34 % (32-36); MEAN CORPUSCULAR VOLUME 101 fL (79.0-98.0); MONOCYTES # (AUTO) 1.2 K/uL (0.0-1.0); MONOCYTES % (AUTO) 5.5 % (1.7-9.3); NEUTROPHILS # (AUTO) 18.3 K/uL (1.8-7.7); NEUTROPHILS % (AUTO) 86.6 % (40.0-70.0); RED BLOOD CELL COUNT(AUTO) 3.04 MIL/uL (4.2-6.2); WHITE BLOOD COUNT (AUTO) 21.1 K/uL (4.8-10.8)
[2017-01-28 07:35] LABS: PLATELET COUNT (AUTO) 31 K/uL (130-430)
[2017-01-28 07:59] LABS: CALCIUM 8.3 mg/dL (8.4-11.0); POTASSIUM 3.2 mmol/L (3.5-5.1); TOTAL BILIRUBIN 1.9 mg/dL (0.0-1.0)
[2017-01-28 08:02] VITALS: BP_SYST 119
[2017-01-28 08:06] LABS: CREATININE 8.08 mg/dL (0.55-1.30)
--- NOTE | 2017-01-28 08:27 | NUR ---
OPENING NOTE CHANGE OF SHIFT REPORT WAS RECEIVED FROM DIRECTOR REGULATORY AFFAIRS NURSE. PT WAS RECEIVED AWAKE AND ALERT. NO SIGNS OR SYMPTOMS OF DISTRESS OR SOB. VS WERE WNL AND COMPLAINED OF LEFT LEG PAIN 6 OUT OF 10. WILL CONTINUE TO MONITOR AND ADDRESS PAIN.
--- NOTE | 2017-01-28 08:29 | NUR ---
CRITICAL LABS LAB CALLED TO REPORT CRITICAL LAB RESULTS OF PLATELETS OF 31. RESULTS REPORTED TO DR. HERNANDEZ. NO ORDERS WERE GIVEN.
[2017-01-28] MEDS: METOPROLOL SUCCINATE 50 MG TAB.SR.24H (TOPROL XL) PO SCH ×2 (09:00→09:48)
[2017-01-28] MEDS: cefTRIAXone 1 GM in D5W 50 ML IV SCH (09:46)
[2017-01-28] MEDS: SEVELAMER HCL 800 MG TABLET PO SCH (09:47)
[2017-01-28] MEDS: ASPIRIN 81 MG TAB.CHEW PO SCH (09:47)
[2017-01-28] MEDS: NEPHROVITE, (FOLIC ACID/VITAMIN B COMP W-C 1 TAB) PO SCH (09:47)
[2017-01-28] MEDS: GABAPENTIN 100 MG CAPSULE PO SCH ×3 (09:47→21:37)
[2017-01-28] MEDS: ACETAMINOPHEN 325 MG TABLET PO PRN ×3 (09:49→22:24)
--- NOTE | 2017-01-28 10:03 | NUR ---
ROUNDING NOTES PT IS AWAKE AND ALERT. MORNING MEDICATIONS WERE GIVEN AND TOLERATED WELL. PT IS CURRENTLY AT BED SIDE AND THEY WERE UNABLE TO GET HIM OFF THE BED DUE TO PT BEING OBESE, PAIN, AND NOT BEING ABLE TO BARE WEIGHT. NO SIGNS OR SYMPTOMS OF SOB OR DISTRESS PRESENT. WILL REASSESS PAIN MEDICATION IN 15 MINUTES AND CONTINUE TO MONITOR PT. CALL LIGHT IS WITHIN REACH, BED AT LOWEST POSITION, AND BED ALARM IS ON.
--- NOTE | 2017-01-28 12:30 | NUR ---
PHYSICAL THERAPY CO-SIGN The Physical Therapy Progress Notes documented by Tong Hooker have been reviewed. Reviewed/Co-Signed by: Marlee Bennett, PT Documentation Done by: Hector Hansen PTA I concur with the documentation of this REAL ESTATE COORDINATOR. Patient continues to be self limiting and needs a lot of encouragements to increase his activities and participation with PT. Plan: continue as per plan of care if he remains in this hospital. Addendum: 01/28/17 at 1409 by Marlee Bennett PT Amended: Links added.
--- NOTE | 2017-01-28 12:30 | NUR ---
ROUNDING LATE ENTRY DUE TO PATIENT CARE. PT IS RESTING IN BED. LEADS AND NC WERE PLACED BACK ON THE PT. PT DID NOT WANT TO WAKE UP TO EAT SO WILL RETURN TO REMIND HIM TO EAT. NO SIGNS OR SYMPTOMS OF DISTRESS OR SOB. BED IS AT LOWEST POSITION, BED ALARM IS ON, CALL LIGHT IS WITHIN REACH. WILL CONTINUE TO MONITOR.
--- NOTE | 2017-01-28 12:39 | NUR ---
Nutrition F/U Nutrition F/U Admitting Diagnosis Febrile Illness Reviewed Pertinent Medical/Surgical Hx Medical Record Patient Primary RN Medical History Comment: Lower Left Extremity Cellulitis, ESRD on HD, DM, Chronic Thrombocytopenia, Morbid Obesity, SELINA, Hypotension, Respiratory Failure, Sepsis per MD notes. Subjective Information Pt seen sleeping soundly at time of RD visit w/ +nasal cannula. RD attempted to awaken pt, however, pt continued to sleep soundly. Lunch tray seen atop bedside table, untouched. Per RN, dialysis was attempted yesterday, but d/t to pt's low BP, unable to complete. She stated that they may try dialysis again today. Pt is likely meeting low end of estimated nutritional needs. RD left nutrition education handouts at bedside. Please see interdisciplinary teaching record for details. Current Diet Order/Nutrition Support [facility] x9 days Patient/Significant Other Able To Verbalize Education Provided Not Indicated Pertinent Medications renagel, nephrovite, insulin aspart Pertinent Labs BG 223 H, BUN 79 H, CRE 8.08 H, WBC 21 H, RBC 3.04 L, H/H 10.4 L/30.6 L, Plt Count 31 L, Na 135 L, POC BG 217 H, Total Bilirubin 1.9 H, AST 27 WNL (improved), ALT 145 H, Alb 2 L Height (Feet) 5 feet Height (Inches) 9.00 inches Weight (Pounds) 337 pounds (admission) BEDSCALE WT: 343 lb, 156 kg (01/28/17) -- likely skewed d/t bedscale inaccuracies Weight (Calculated Kilograms) 153.81693 kilograms Patient Weight 153.18 kg Body Mass Index 49.8 kg/m2 %IBW [address] [place]/Adjusted Body Weight 160 lbs, 73 kg.; Adj IBW for Obesity: 204 lbs, 93 kg. Recent Weight Change No - per EMR Weight Status Morbidly Obese Last BM 01/27/17 Usual Diet At Home Regular diet Skin Integrity Comment: Zackary scale: 15; per Healthcare Analyst note 01/27/17: 1. Left foot, fifth metatarsal head, plantar and lateral aspects: Diabetic/neuropathic foot ulcer, present on admission. 2. Left medial lower extremity, mid calf level: Partially open bulla with purple discoloration, present on admission. 3. Left medial lower extremity, mid calf level, superior and anterior to site 2: Closed bulla present with purple discoloration. No odor, no drainage. Measures 1.5 cm x 0.7 cm. Extremity is edematous. 4. Left medial lower extremity, mid calf level, distal to site 2: Closed bulla present with purple discoloration. 5. Left lateral lower extremity, mid calf level: Partially open bulla with purple discoloration. 6. Gluteal sulcus: Moisture associated lesion. Current % PO Fair 60% PO intake Estimated Energy Expenditure (kcals/day) 4015-3426 kcal/day (BEE x 1.2-1.5 IBW for Sepsis) Estimated Protein Required (g/day) 87-95 gm/day (1.2-1.3 gm/kg IBW for ESRD on HD) Estimated Fluid Required (l/day) Per MD (ESRD) Problem/Etiology/Signs/Symptoms Increased nutritional needs related to metabolic demands as evidenced by elevated WBC and estimated nutritional needs for sepsis. *ongoing Expected Outcomes/Goals Monitor pt appetite and intake w/ goal of pt meeting 80% of estimated nutritional needs, labs trending WNL, normal GI function, skin integrity/wt maintenance. *ongoing Dietitian Recommendations * Recommend CCHO, renal standard diet Follow Up Low Risk: F/U in 7 days
--- NOTE | 2017-01-28 12:46 | NUR ---
Dietitian Recommendations * Recommend CCHO, renal standard diet LP, RD Please refer to Nutrition F/U for details.
[2017-01-28 13:07] VITALS: BP_SYST 115
--- NOTE | 2017-01-28 14:38 | NUR ---
ROUNDING PT IS SLEEPING BUT CAN BE WOKEN UP WITH WHEN CALLING HIS NAME. NO SIGNS OR SYMPTOMS OF DISTRESS OR SOB. PT IS ABLE TO LET YOU KNOW WHEN HE REQUIRES THE URINAL. CALL LIGHT IS WITHIN REACH, BED IS AT LOWEST POSITION, BED ALARM IS ON. WILL CONTINUE TO MONITOR.
--- NOTE | 2017-01-28 16:31 | NUR ---
ROUNDS PT IS RESTING AT BEDSIDE. WAS ABLE TO PROVIDE MINIMAL ASSISTANCE IN REPOSITIONING. CHANGED HIS GOWN AND LINEN. NO SIGNS OR SYMPTOMS OF DISTRESS OR SOB. CURRENT NEEDS HAVE BEEN MEET. CALL LIGHT IS WITHIN REACH, BED IS AT LOWEST POSITION, AND BED ALARM IS ON. WILL CONTINUE TO MONITOR.
[2017-01-28 17:02] VITALS: BP_SYST 120
--- NOTE | 2017-01-28 18:35 | NUR ---
CLOSING NOTE PT IS AWAKE AND ALERT AND RESTING COMFORTABLY. IS AT BEDSIDE. FALL PRECAUTIONS IN PLACE. CALL LIGHT IS WITHIN REACH. SIDE RAILS UP X 2. BED IN LOW POSITION. WILL GIVE REPORT AND ENDORSE CARE TO FIELD SUPPORT TECHNICIAN RN.
[2017-01-28 19:30] VITALS: BP_SYST 101
--- NOTE | 2017-01-28 19:30 | NUR ---
NOTES RECEIVED THE PT FROM THE DAY NURSE,PT A/A/OX2.DIALYSIS NURSE HERE TO START DIALYSIS.MONITOR IN PLACE AND SHOWS SINUS ERON AT 52IV INTACT TO LT FOREARM ,NO REDNESS OR SWELLING NOTED.O2 VIA NC AT 3L/MIN.CALL LIGHT WITHIN REACH ,SAFETY MEASURES IN PROGRESS.CONTINUE TO MONITOR.
--- NOTE | 2017-01-28 22:18 | NUR ---
NOTES DIALYSIS IN PROGRESS ,PT C/O GENERALIZED PAIN ,WILL MEDICATE WITH TYLENOL.
--- NOTE | 2017-01-28 23:08 | NUR ---
NOTES DIALYSIS COMPLETED BP 97/43 HR 53 NO FLUID REMOVED PER THE DIALYSIS NURSE.
--- NOTE | 2017-01-28 23:38 | NUR ---
NOTES PT PLACED ON THE BIPAP BY THE RESPIRATORY THERAPIST.
[2017-01-29] VITALS (7 sets, daily range): BP systolic 110–146
[2017-01-29] MEDS: INSULIN ASPART 100 UNITS/ML, 10 ML VIAL (NovoLOG) SUBCUT PRN ×5 (00:39→23:22)
--- NOTE | 2017-01-29 01:34 | NUR ---
NOTES PT AWAKE AND TOOK THE BIPAP OFF.CONTINUE TO MONITOR.
[2017-01-29] MEDS: ACETAMINOPHEN 325 MG TABLET PO PRN ×2 (03:33→09:57)
--- NOTE | 2017-01-29 03:43 | NUR ---
notes pt c/o pain to lt leg and was medicated as ordered,pt cleaned and repositioned with pillow support.call light within reach.continue to monitor.
--- NOTE | 2017-01-29 05:28 | NUR ---
NOTES PT PULLED OFF HIS GOWN AND O2 NC.O2 AND GOWN RE APPLIED.
[2017-01-29] MEDS: NORMAL SALINE 5 ML DISP.SYRIN IVF SCH ×3 (05:46→20:55)
--- NOTE | 2017-01-29 06:12 | NUR ---
CLOSING NOTES ACCUCHECK WAS 158,INSULIN GIVEN PER S/S.WILL ENDORSE THE CARE OF THE PT TO THE DAY NURSE.
[2017-01-29 07:03] LABS: CALCIUM 8.3 mg/dL (8.4-11.0); CREATININE 6.62 mg/dL (0.55-1.30); POTASSIUM 3.4 mmol/L (3.5-5.1)
[2017-01-29 07:06] LABS: BASOPHILS # (AUTO) 0.4 K/uL (0.0-0.2); BASOPHILS % (AUTO) 2.7 % (0.0-2.0); EOSINOPHILS # (AUTO) 0.2 K/uL (0.0-0.4); EOSINOPHILS % (AUTO) 1.3 % (0.0-4.0); HEMATOCRIT 28.3 % (36-54); HEMOGLOBIN 9.7 g/dL (14.0-18.0); LYMPHOCYTES # (AUTO) 0.7 K/uL (1.0-5.5); LYMPHOCYTES % (AUTO) 5.2 % (20.5-51.5); MEAN CORPUSCULAR HEMOGLOBIN 35 pg (27-31); MEAN CORPUSCULAR HGB CONC 34 % (32-36); MEAN CORPUSCULAR VOLUME 101 fL (79.0-98.0); MONOCYTES # (AUTO) 0.9 K/uL (0.0-1.0); MONOCYTES % (AUTO) 6.4 % (1.7-9.3); NEUTROPHILS # (AUTO) 11.3 K/uL (1.8-7.7); NEUTROPHILS % (AUTO) 84.4 % (40.0-70.0); RED BLOOD CELL COUNT(AUTO) 2.82 MIL/uL (4.2-6.2); RED CELL DISTRIBUTION WIDTH 16.1 % (9.0-15.0); WHITE BLOOD COUNT (AUTO) 13.5 K/uL (4.8-10.8)
[2017-01-29 07:43] LABS: PLATELET COUNT (AUTO) 53 K/uL (130-430)
--- NOTE | 2017-01-29 07:55 | NUR ---
INITIAL ROUNDS Received pt AAOx4, no s/s resp distress, no c/o pain or discomfort, no signs of facial droop at this time-Dr. Kaiser here and informed of pt's Jamilah's concern. Plan of care for the day reviewed with pt-pt verbalized his understanding. Noted RFA AV shunt. Pt on air mattress, will reposition pt Q 2hrs/PRN with pillow support and heels off-loaded for skin care and comfort. Noted dressings to LLE; SCD to right LE. Pain management, disease process, skin and safety discussed-teach back done. Side rails up x3 for safety, contact phone number explained, call light within reach.
[2017-01-29] MEDS: METOPROLOL SUCCINATE 25 MG TAB.SR.24H (TOPROL XL) PO SCH (09:00)
[2017-01-29] MEDS: VANCOMYCIN HCL 1,500 MG in NS 250 ML IV SCH (09:37)
[2017-01-29] MEDS: ASPIRIN 81 MG TAB.CHEW PO SCH (09:42)
[2017-01-29] MEDS: NEPHROVITE, (FOLIC ACID/VITAMIN B COMP W-C 1 TAB) PO SCH (09:42)
[2017-01-29] MEDS: SEVELAMER HCL 800 MG TABLET PO SCH (09:43)
[2017-01-29] MEDS: GABAPENTIN 100 MG CAPSULE PO SCH ×3 (09:43→20:51)
[2017-01-29] MEDS: cefTRIAXone 1 GM in D5W 50 ML IV SCH (11:45)
--- NOTE | 2017-01-29 12:30 | NUR ---
PILLOW FOR HEELS/LEFT LE Pt kept kicking off the bed the pillows used for off-loading his heels and LLE. Pt educated on need for off-loading heels for skin care-pt stated "not right now". Will attempt to float heels again when care done within next hour.
--- NOTE | 2017-01-29 12:40 | NUR ---
WOUND RE-EVALUATION: Patient received in a [place] Bed with an IsoFlex MARY mattress with low air loss therapy, awake, drowsy, and oriented. Patient is able to turn in bed, needs some assist. Zackary Score is a 13. Intrinsic factors that delay wound healing: Diabetes mellitus, hypoalbuminemia. Extrinsic factors that delay wound healing: Decreased mobility. Microbiology: Blood culture times 2 results in progress. Wound Assessment: 1. Left foot, fifth metatarsal head, plantar and lateral aspects: Diabetic/neuropathic foot ulcer, present on admission. No odor, no drainage. Recommend continue: No dressing needed. Continue to monitor sites every shift. Elevate, offload and flow bilateral heels with pillows lengthwise at all times. 2. Left medial lower extremity, mid calf level: Partially open bulla with purple discoloration, present on admission. Open area, visible tissue is 95% yellow tissue, 5% red tissue. No odor, scant sanguineous drainage. Extremity is edematous. 3. Left medial lower extremity, mid calf level, superior and anterior to site 2: Closed bulla present with purple discoloration. No odor, no drainage. Extremity is edematous. 4. Left medial lower extremity, mid calf level, distal to site 2: Closed bulla present with purple discoloration. No odor, no drainage. Extremity is edematous. 5. Left lateral lower extremity, mid calf level: Partially open bulla with purple discoloration. Open area, visible tissue is 90% yellow, 10% red. No odor, no drainage. Extremity is edematous. Recommend continue: Cleanse involved areas with normal saline. Pat dry. Put Venelex ointment onto open areas. Put sure prep onto beth-wound. Put oil emulsion dressings over entire bullae sites, then cover with non-adhesive foam dressings. Wrap with beau wrap. Perform wound care daily, and as needed for dressing soiling or dislodgment. 6. Gluteal sulcus: Moisture associated lesion. Wound bed is 90% red tissue 10% pink tissue. No odor, no drainage. Periwound intact. Recommend continue: Cleanse wound with normal saline. Pat dry. Apply calmoseptine cream onto wound and periwound. Cover any portion of wound not covered by calmoseptine with hydrogel. Cover with foam dressing. Perform wound care daily, and as needed for dressing soiling or dislodgment. Also recommend continue: Encourage and assist patient as needed with repositioning [id number] only every hour with pillow support, and off-load pressure areas with pillows for pressure re-distribution. Offload, elevate and float bilateral heels with pillows. Perform skin care and monitor skin integrity Q shift. Use antifungal clear cream, then Calmoseptine cream on buttocks and other moisture susceptible areas QID and as needed for soiling. Recommend surgical consult for possible debridement.
--- NOTE | 2017-01-29 12:45 | NUR ---
WOUND CARE #1: Medial LLE, mid calf level is a partially open bulla with purple discoloration, with an open area. Wound bed tissue is 95% yellow tissue, 5% red tissue. No odor, scant sanguineous drainage. Wound cleansed with normal saline, Therahoney applied to wound bed, foam dressing placed and secured in place with rafa wrap. #2: Medial LLE, mid calf level, superior and anterior to site 2 is a closed bulla present with purple discoloration. No odor, no drainage. Wound cleansed with normal saline. Sure prep applied to beth-wound area, oil emulsion dressing place over entire bullae sites, then covered with non-adhesive foam dressings. Wrapped with katelynn wrap and secured in place with tape. #3:Medial LLE, mid calf level, distal to site 2 is a closed bulla present with purple discoloration. No odor, no drainage. Wound cleansed with normal saline. Sure prep applied to beth-wound area, oil emulsion dressing place over entire bullae sites, then covered with non-adhesive foam dressings. Wrapped with Katelynn wrap and secured in place with tape. #4: Lateral LLE, mid calf level is a partially open bulla with purple discoloration. Open area, visible tissue is 90% yellow, 10% red. No odor, no drainage. Wound cleansed with normal saline, Therahoney applied to wound bed, foam dressing placed and secured in place with rafa wrap. #5: Gluteal sulcus wound bed is 90% red tissue 10% pink tissue. No odor, no drainage. Periwound intact. Wound cleansed with normal saline. Patted dry. Applied Calmoseptine cream onto wound and periwound. Covered with foam dressing. #6 Upper thigh & bottom of buttocks area reddened area-blanchable. Area cleansed with normal saline, anti-fungal cream applied then same area covered with moisture barrier cream per direction of the wound care nurse. Left open to air. Pt repositioned with pillow support and heels off-loaded.
--- NOTE | 2017-01-29 13:52 | NUR ---
PHYSICAL THERAPY CO-SIGN The Physical Therapy Progress Notes documented by Biological Photographer have been reviewed. Reviewed/Co-Signed by: Azeb Gilliam PT Documentation Done by:Yannick GUEVARA PTA I CONCUR WITH THE DOCUMENTATION BY THE ABOVE SYSTEM SOFTWARE PROGRAMMER Addendum: 01/29/17 at 1354 by Azeb Gilliam PT Amended: Links added.
[2017-01-29] MEDS ORDERED: BALSAM PERU/CASTOR OIL 60 GM OINT...G. TP PRN (14:30)
--- NOTE | 2017-01-29 15:54 | NUR ---
ROUNDS Pt resting quietly in bed with no s/s resp distress, no c/o pain or discomfort. Pt continues to refuse CT of the head. Call light within reach.
[2017-01-29] MEDS: MENTHOL/ZINC OXIDE 113 GM OINT. TP SCH ×2 (17:08→20:54)
--- NOTE | 2017-01-29 18:26 | NUR ---
CLOSING NOTE Pt resting quietly in bed with no s/s resp distress, no c/o pain or discomfort. Pt refused CT head 3 times today. Pt's LLE elevated on pillow. All precautions remain in place. Call light within reach.
--- NOTE | 2017-01-29 19:30 | NUR ---
NOTES PT REFUSING THE SCD DUE TO LEG ULCERS.
--- NOTE | 2017-01-29 19:30 | NUR ---
notes dressings to lt leg and buttocks are dry and intact.
--- NOTE | 2017-01-29 19:30 | NUR ---
NOTES RECEIVED THE PT FROM THE DAY NURSE.PT A/A/OX2 FAMILY ARE AT THE BEDSIDE.IV TO LT FOREARM INTACT,NO REDNESS OR SWELLING NOTED.MONITOR IN PLACE AND SHOWS SINUS ERON.O2 VIA NC IN PLACE AT 3L/MIN. PT DENIES SOB OR PAIN AT THIS TIME.SHUNT TO RT UPPER ARM INTACT WITH GOOD BRUIT.CALL LIGHT WITHIN REACH,SAFETY MEASURES IN PROGRESS.CONTINUE TO MONITOR.
[2017-01-29] MEDS: MENTHOL/ZINC OXIDE 113 GM OINT. TP PRN (20:51)
[2017-01-29] MEDS: ANTIFUNGAL CLEAR OINTMENT TP SCH (20:55)
--- NOTE | 2017-01-29 21:50 | NUR ---
paged paged for Dr Quach, dialed . s/w Rebekah.
--- NOTE | 2017-01-29 21:51 | NUR ---
NOTES PT INCONTINENT OF SMALL SOFT STOOL,PT CLEANED AND REPOSITIONEDSPOKE WITH DR COBIAN TO GET APPROVAL FOR DIALYSIS IN THE AM,DR SAID IT WAS OK.
--- NOTE | 2017-01-29 23:26 | NUR ---
NOTES ACCUCHECK WAS 338,INSULIN GIVEN PER S/S.PT PLACED ON THE BIPAP BY THE RESPIRATORY THERAPIST.
--- NOTE | 2017-01-30 01:43 | NUR ---
NOTES PT SLEEPING,CONTINUE TO MONITOR.
[2017-01-30 02:47] VITALS: BP_SYST 117
--- NOTE | 2017-01-30 03:38 | NUR ---
notes pt sleeping ,tolerating the bipap well.continue to monitor.
--- NOTE | 2017-01-30 05:22 | NUR ---
notes pt resting with eyes closed.no distress noted.continue to monitor.
[2017-01-30] MEDS: NORMAL SALINE 5 ML DISP.SYRIN IVF SCH ×3 (05:39→21:24)
[2017-01-30] MEDS: INSULIN ASPART 100 UNITS/ML, 10 ML VIAL (NovoLOG) SUBCUT PRN ×4 (05:43→23:54)
--- NOTE | 2017-01-30 05:51 | NUR ---
notes accucheck was 204,insulin given per s/s,mill laborer drawing blood at the bedside.
--- NOTE | 2017-01-30 06:02 | NUR ---
closing notes pt resting with eyes closed nc placed back in nares.will endorse the care of the pt to the day nurse.
[2017-01-30 07:31] LABS: HEMATOCRIT 31.1 % (36-54); HEMOGLOBIN 10.4 g/dL (14.0-18.0); MEAN CORPUSCULAR HEMOGLOBIN 34 pg (27-31); MEAN CORPUSCULAR HGB CONC 34 % (32-36); MEAN CORPUSCULAR VOLUME 101 fL (79.0-98.0); RED BLOOD CELL COUNT(AUTO) 3.07 MIL/uL (4.2-6.2); RED CELL DISTRIBUTION WIDTH 16.9 % (9.0-15.0); WHITE BLOOD COUNT (AUTO) 13.3 K/uL (4.8-10.8)
[2017-01-30 07:49] LABS: CALCIUM 8.3 mg/dL (8.4-11.0); POTASSIUM 3.5 mmol/L (3.5-5.1); TOTAL BILIRUBIN 1.6 mg/dL (0.0-1.0)
[2017-01-30 08:06] LABS: PLATELET COUNT (AUTO) 31 K/uL (130-430)
[2017-01-30 08:13] LABS: CREATININE 8.08 mg/dL (0.55-1.30)
[2017-01-30] MEDS ORDERED: HEPARIN SODIUM, PORCINE 10,000 UNITS/ 10 ML VIAL ONE (08:21)
[2017-01-30 08:35] VITALS: BP_SYST 105
[2017-01-30] MEDS: METOPROLOL SUCCINATE 25 MG TAB.SR.24H (TOPROL XL) PO SCH (09:00)
[2017-01-30 09:36] LABS: BAND % (MANUAL) 2 % (0-6); BASOPHILS % (MANUAL) 0 % (0-2); EOSINOPHILS % (MANUAL) 0 % (0-7); LYMPHOCYTES % (MANUAL) 3 % (20-46); MONOCYTES % (MANUAL) 12 % (0-11)
[2017-01-30] MEDS: NEPHROVITE, (FOLIC ACID/VITAMIN B COMP W-C 1 TAB) PO SCH (09:39)
[2017-01-30] MEDS: cefTRIAXone 1 GM in D5W 50 ML IV SCH (09:39)
[2017-01-30] MEDS: SEVELAMER HCL 800 MG TABLET PO SCH (09:40)
[2017-01-30] MEDS: ASPIRIN 81 MG TAB.CHEW PO SCH (09:40)
[2017-01-30] MEDS: GABAPENTIN 100 MG CAPSULE PO SCH ×3 (09:40→21:22)
[2017-01-30 12:22] VITALS: BP_SYST 113
[2017-01-30] MEDS: BALSAM PERU/CASTOR OIL 60 GM OINT...G. TP SCH (14:25)
[2017-01-30] MEDS: ANTIFUNGAL CLEAR OINTMENT TP SCH ×2 (14:25→21:25)
[2017-01-30] MEDS: MENTHOL/ZINC OXIDE 113 GM OINT. TP SCH ×4 (14:26→21:23)
--- NOTE | 2017-01-30 14:28 | NUR ---
WOUND CARE WOUND CARE PERFORMED. OINTMENTS INDICATED BY HOISTMAN VICENTE. WILL CONTINUE TO MONITOR.
[2017-01-30 16:35] VITALS: BP_SYST 123
--- NOTE | 2017-01-30 16:50 | NUR ---
1600 NOTE PATIENT RESTING COMFORTABLY, NO COMPLAINTS OF PAIN AT THIS TIME. NO NOTABLE SIGNS OF DISTRESS AT THIS TIME. PATIENT SALINE LOCK PER MD ORDERS. PATIENT COMPLETED DIALYSIS PER MD ORDERS, 2L REMOVED. PATIENT BED IN LOWEST POSITION, CALL LIGHT WITHIN REACH, AND SIDE RAILS ARE UP FOR SAFETY MEASURES. WILL CONTINUE TO MONITOR PATIENT FOR CHANGES IN STATUS.
[2017-01-30 17:25] VITALS: BP_SYST 123
--- NOTE | 2017-01-30 19:52 | NUR ---
OPENING NOTE PATIENT RESTING COMFORTABLY, NO COMPLAINTS OF PAIN AT THIS TIME. NO NOTABLE SIGNS OF DISTRESS AT THIS TIME. PATIENT SALINE LOCK PER MD ORDERS. PATIENT TO HAVE DIALYSIS PER MD ORDERS. PATIENT BED IN LOWEST POSITION, CALL LIGHT WITHIN REACH, AND SIDE RAILS ARE UP FOR SAFETY MEASURES. WILL CONTINUE TO MONITOR PATIENT FOR CHANGES IN STATUS.
--- NOTE | 2017-01-30 19:53 | NUR ---
1000 NOTE PATIENT RESTING COMFORTABLY, NO COMPLAINTS OF PAIN AT THIS TIME. NO NOTABLE SIGNS OF DISTRESS AT THIS TIME. PATIENT SALINE LOCK PER MD ORDERS. PATIENT IS HAVING DIALYSIS PER MD ORDERS. PATIENT BED IN LOWEST POSITION, CALL LIGHT WITHIN REACH, AND SIDE RAILS ARE UP FOR SAFETY MEASURES. WILL CONTINUE TO MONITOR PATIENT FOR CHANGES IN STATUS.
--- NOTE | 2017-01-30 19:55 | NUR ---
1800 NOTE PATIENT FAMILY ASKED WHEN CT WILL BE COMPLETED, CHECKED ORDER, STILL ACTIVE ORDER. CALLED CT TO KNOW WHEN SCHEDULED TIME. SAVANA CAME IN TO COMPLETE EXAM. SAVANA AT BEDSIDE TO LEAD NUCLEAR MEDICINE TECHNOLOGIST PATIENT, PATIENT NEEDED TO HAVE BM. ENDORSED TO BOOT LINER MAKER NURSE. PATIENT NEEDS MET AT THIS TIME. PATIENT RESTING COMFORTABLY, NO COMPLAINTS OF PAIN AT THIS TIME. REPORT GIVEN TO CARLYLE BOOT LINER MAKER RN.
[2017-01-30 20:00] VITALS: BP_SYST 115
--- NOTE | 2017-01-30 20:00 | NUR ---
Initial PM Note Pt was received in bed sleeping, but easily arousable. Pt is oriented to his name and place only. No acute distress noted. O2 sat is 95% on O2 at 2L/min per NC. Speech is clear and pt denies pain or discomfort. Skin is warm and dry to touch. No signs or symptoms of hypoglycemia or hyperglycemia noted. AV Shunt in RFA is with good bruit and thrill. Lt leg and left foot dressings are dry and intact. Lt leg dressing noted with old serosanguinous drainage. Saline lock is patent in LH without any signs of infiltration. Fall and safety precautions are in place. Pt was instructed to call for assistance as needed and pt verbalized understanding. Three side rails are up, bed is in the lowest and locked positions, call light is with pt and bed alarm is on. auto parts manager is showing SR with 1st degree AVB. Will continue to monitor pt.
--- NOTE | 2017-01-30 20:45 | NUR ---
Family Visitation Family members visiting at the bedside. All their questions were answered. Pt is resting quietly in bed.
--- NOTE | 2017-01-30 21:22 | NUR ---
HS Medications HS medications given. No difficulty swallowing noted.
--- NOTE | 2017-01-30 22:45 | NUR ---
BIPAP Pt was placed on BIPAP with large mask by RT and being tolerated by pt.
--- NOTE | 2017-01-30 22:45 | NUR ---
RT NOTES @1589 PT WAS PLACED ON BIPAP WITH SETTINGS OF S/T 16/6, f12, 30% BIPAP ALARMS AND APNEA SETTINGS ARE SET AND FUNCTIONING. PT RUPA BIPAP WELL. NO RESP DISTRESS NOTED.
--- NOTE | 2017-01-30 23:54 | NUR ---
Blood Sugar Accucheck 254 and 6 units NovoLog Insulin was given SQ. Skin remains warm and dry to touch. Pt was offered snack, but he declined.
[2017-01-31 00:29] VITALS: BP_SYST 106
--- NOTE | 2017-01-31 02:00 | NUR ---
Rounds Pt is sleeping with BIPAP on. No respiratory distress noted. Call light is with pt and bed alarm is on.
[2017-01-31 03:25] VITALS: BP_SYST 114
--- NOTE | 2017-01-31 04:00 | NUR ---
Rounds Pt is sleeping with BIPAP on and no respiratory distress noted. Call light is with pt and bed alarm is on.
[2017-01-31] MEDS: NORMAL SALINE 5 ML DISP.SYRIN IVF SCH ×3 (06:33→22:09)
[2017-01-31] MEDS: VANCOMYCIN HCL 1,500 MG in NS 250 ML IV SCH (06:33)
[2017-01-31] MEDS: INSULIN ASPART 100 UNITS/ML, 10 ML VIAL (NovoLOG) SUBCUT PRN ×4 (06:37→23:51)
--- NOTE | 2017-01-31 06:37 | NUR ---
Closing Note Pt is awake and no c/o pain or discomfort. BIPAP was removed per pt's request and pt was placed on O2 at 2L/min per NC. No respiratory distress noted. Blood Sugar 219 this Am and 4 units NovoLog Insulin was given SQ. Skin remains warm and dry to touch. Will endorse to day shift nurse.
[2017-01-31 07:06] LABS: CALCIUM 8.2 mg/dL (8.4-11.0); CREATININE 7.22 mg/dL (0.55-1.30); POTASSIUM 3.2 mmol/L (3.5-5.1)
[2017-01-31 07:34] LABS: HEMATOCRIT 28.5 % (36-54); HEMOGLOBIN 9.6 g/dL (14.0-18.0); MEAN CORPUSCULAR HEMOGLOBIN 34 pg (27-31); MEAN CORPUSCULAR HGB CONC 34 % (32-36); MEAN CORPUSCULAR VOLUME 101 fL (79.0-98.0); RED BLOOD CELL COUNT(AUTO) 2.83 MIL/uL (4.2-6.2); RED CELL DISTRIBUTION WIDTH 17.2 % (9.0-15.0); WHITE BLOOD COUNT (AUTO) 12.2 K/uL (4.8-10.8)
[2017-01-31 07:54] LABS: PLATELET COUNT (AUTO) 33 K/uL (130-430)
--- NOTE | 2017-01-31 08:18 | NUR ---
OPENING NOTE PATIENT RESTING COMFORTABLY, NO COMPLAINTS OF PAIN AT THIS TIME. NO NOTABLE SIGNS OF DISTRESS AT THIS TIME. PATIENT SALINE LOCK PER MD ORDERS. PATIENT IV ANTIBIOTICS BEGAN BY BIRTH ATTENDANT NURSE. TO START NEXT ANTIBIOTIC WITH MORNING MEDICATIONS. PATIENT BED IN LOWEST POSITION, CALL LIGHT WITHIN REACH, AND SIDE RAILS ARE UP FOR SAFETY MEASURES. WILL CONTINUE TO MONITOR PATIENT FOR CHANGES IN STATUS. PATIENT REPOSITIONED ON PILLOW SUPPORT. ALL VITALS ARE STABLE AT THIS TIME.
[2017-01-31] MEDS: BALSAM PERU/CASTOR OIL 60 GM OINT...G. TP SCH (09:00)
[2017-01-31 09:10] LABS: BAND % (MANUAL) 6 % (0-6); BASOPHILS % (MANUAL) 0 % (0-2); EOSINOPHILS % (MANUAL) 0 % (0-7); LYMPHOCYTES % (MANUAL) 5 % (20-46); MONOCYTES % (MANUAL) 16 % (0-11)
--- NOTE | 2017-01-31 10:01 | NUR ---
CM DC PLANNING: SPOKE WITH RN/[place] RE: RONI COLES HERE YET; DR. DUTTA JUST CAME IN AND STATED HE DOES NOT FEEL Pt IS STABLE FOR TRANSFER TO SNF ON THE WEEKEND. NEW CONCERNS ON 01/30/17 WITH ORIENTATION BECOMING LESS; OREDERED CT BRAIN WHICH WAS NEG FOR ANY ACUTE IC ABNORMALITIES; & POSITIVE FOR ATHEROSCLEROTIC VASCULAR DISEASE. CONCERNS FOR 01/31/17 ARE Pt NECESSITATES HD X 4/WEEK; HAS WEEPING WOUND ON LEFT LEG MANAGED PER TANK WAGON OPERATOR/VICENTE RECOMMENDATIONS; ALSO, HAS DIABETIC ULCER ON LEFT FOOT PRESENT ON ADMISSION; MAY NEED FURTHER WORK-UP FOR CIRCULATION CONCERNS. Addendum: 01/31/17 at 1011 by Roro Steward RN ADDENDUM TO ABOVE: BOTH POLY & DR. DUTTA WERE NOTIFIED OF CMM TECHNICIAN/DR. COBIAN's REQUEST FOR DOCUMENTATION OF NEED FOR CONTINUED IN-Pt STAY VERSUS TRANSFER TO SNF.
[2017-01-31] MEDS: cefTRIAXone 1 GM in D5W 50 ML IV SCH (10:10)
[2017-01-31] MEDS: MENTHOL/ZINC OXIDE 113 GM OINT. TP PRN (10:11)
[2017-01-31] MEDS: SEVELAMER HCL 800 MG TABLET PO SCH (10:11)
[2017-01-31] MEDS: GABAPENTIN 100 MG CAPSULE PO SCH ×3 (10:11→22:07)
[2017-01-31] MEDS: NEPHROVITE, (FOLIC ACID/VITAMIN B COMP W-C 1 TAB) PO SCH (10:12)
[2017-01-31] MEDS: METOPROLOL SUCCINATE 25 MG TAB.SR.24H (TOPROL XL) PO SCH (10:12)
[2017-01-31] MEDS: ASPIRIN 81 MG TAB.CHEW PO SCH (10:12)
[2017-01-31] MEDS: HYDROcodone/ACETAMIN 5-325 MG TAB (NORCO/ VICODIN) PO PRN ×2 (10:12→22:32)
[2017-01-31] MEDS: MENTHOL/ZINC OXIDE 113 GM OINT. TP SCH ×4 (10:13→22:11)
[2017-01-31] MEDS: ANTIFUNGAL CLEAR OINTMENT TP SCH ×2 (10:13→21:00)
--- NOTE | 2017-01-31 10:13 | NUR ---
WOUND CARE/MEDICATION ADMINISTRATION WOUND CARE COMPLETED PER VICENTE DAIRY SUPPLIES SALES REPRESENTATIVE RECOMMENDATIONS. LATE MEDICATION ADMINISTRATION DUE TO PATIENT CARE. DR. DUTTA CAME TO SEE PATIENT MADE RECOMMENDATION OF UNIBOOT FOR THE VENASTASIS ULCER PRESENT ON PATIENTS LOWER LEFT LEG. PATIENT WAS ABLE TO HAVE LARGE BOWEL MOVEMENT, PARTIAL LINEN CHANGE COMPLETED. WILL CONTINUE TO MONITOR PATIENT FOR CHANGES IN STATUS.
[2017-01-31 12:09] VITALS: BP_SYST 118
--- NOTE | 2017-01-31 12:18 | NUR ---
1200 NOTE PATIENT RESTING COMFORTABLY, NO COMPLAINTS OF PAIN AT THIS TIME, PATIENT GIVEN NORCO WITH MORNING MEDICATION. NO NOTABLE SIGNS OF DISTRESS AT THIS TIME. PATIENT SALINE LOCK PER MD ORDERS. PATIENT BED IN LOWEST POSITION, CALL LIGHT WITHIN REACH, AND SIDE RAILS ARE UP FOR SAFETY MEASURES. WILL CONTINUE TO MONITOR PATIENT FOR CHANGES IN STATUS. PATIENT REPOSITIONED ON PILLOW SUPPORT. ALLOWING TIME FOR PATIENT TO REST.
--- NOTE | 2017-01-31 13:28 | NUR ---
FAMILY CALLED , DINESH, CALLED FOR AN UPDATE. DISCUSSED THAT THE WAS IN EARLIER IN THE MORNING, PLANNING FOR DISCHARGE TOMORROW AT [facility], WOULD LIKE DR. CHAUDHRY TO EVALUATE. ORDERED WOULD CARE CONSULT FOR TOMORROW FOR DRESSING VINNY BOOT TO LLE.
[2017-01-31 16:10] VITALS: BP_SYST 117
--- NOTE | 2017-01-31 19:59 | NUR ---
initial notes: pt is awake, alert and oriented x 3. stable vital sign. family at bedside. av shunt to right fore arm. pt has wound to left lower leg with dressing- dressing is wet. left leg is more swollen than right. iv lock to left fore arm seen. explain poc to night. needs attended. call light in reach. will continue to monitor.
[2017-01-31 20:06] VITALS: BP_SYST 115
--- NOTE | 2017-01-31 20:27 | NUR ---
PAGED DOCTOR CHARLES FOR ORDERS SPOKE WITH SVETA
--- NOTE | 2017-01-31 22:36 | NUR ---
notes: awake, alert. pain medication given. reposition. needs attended. will monitor for changes.
[2017-01-31] MEDS ORDERED: guaiFENesin ER 600 MG TAB PO PRN (23:15)
--- NOTE | 2017-02-01 | NUR ---
notes: pt is sleeping on his side. on bipap- tolerating well. blood sugar 209- cover per sliding scale. needs attended. call light in reach. will monitor.
[2017-02-01 00:13] VITALS: BP_SYST 127
--- NOTE | 2017-02-01 02:11 | NUR ---
notes: sleeping on his side. pt is able to turn by him self. still on bipap. comfortable. stable. side rails up. call light in reach. will monitor.
[2017-02-01 03:27] VITALS: BP_SYST 92
--- NOTE | 2017-02-01 04:12 | NUR ---
notes: reposition pt. tolerate well. needs attended. call light in reach. will monitor.
[2017-02-01] MEDS: NORMAL SALINE 5 ML DISP.SYRIN IVF SCH (06:06)
[2017-02-01] MEDS: INSULIN ASPART 100 UNITS/ML, 10 ML VIAL (NovoLOG) SUBCUT PRN ×3 (06:11→16:50)
--- NOTE | 2017-02-01 06:45 | NUR ---
closing: pt is resting. no pain. no distress. no coughing. am lab draws done by aerial photograph interpreter. blood sugar 190, cover per sliding scale. needs attended. call light in reach. lowest bed position. will give bedside report to am rn.
[2017-02-01 07:23] LABS: ALBUMIN 1.9 g/dL (3.4-4.8); BILIRUBIN,DIRECT 1.1 mg/dL (0.0-0.3); CALCIUM 8.6 mg/dL (8.4-11.0); POTASSIUM 3.6 mmol/L (3.5-5.1); TOTAL BILIRUBIN 1.6 mg/dL (0.0-1.0)
[2017-02-01 07:28] LABS: BASOPHILS # (AUTO) 0.1 K/uL (0.0-0.2); BASOPHILS % (AUTO) 0.6 % (0.0-2.0); EOSINOPHILS # (AUTO) 0.1 K/uL (0.0-0.4); EOSINOPHILS % (AUTO) 1.1 % (0.0-4.0); HEMATOCRIT 28.9 % (36-54); HEMOGLOBIN 9.6 g/dL (14.0-18.0); LYMPHOCYTES # (AUTO) 0.7 K/uL (1.0-5.5); LYMPHOCYTES % (AUTO) 5.5 % (20.5-51.5); MEAN CORPUSCULAR HEMOGLOBIN 33 pg (27-31); MEAN CORPUSCULAR HGB CONC 33 % (32-36); MEAN CORPUSCULAR VOLUME 101 fL (79.0-98.0); MONOCYTES # (AUTO) 1.8 K/uL (0.0-1.0); MONOCYTES % (AUTO) 13.4 % (1.7-9.3); NEUTROPHILS # (AUTO) 10.4 K/uL (1.8-7.7); NEUTROPHILS % (AUTO) 79.4 % (40.0-70.0); RED BLOOD CELL COUNT(AUTO) 2.88 MIL/uL (4.2-6.2); RED CELL DISTRIBUTION WIDTH 16.5 % (9.0-15.0); WHITE BLOOD COUNT (AUTO) 13.1 K/uL (4.8-10.8)
[2017-02-01 07:31] LABS: CREATININE 8.68 mg/dL (0.55-1.30)
--- NOTE | 2017-02-01 07:48 | NUR ---
Called to put a page to Dr. Li for critical labs and spoke with Angelica
--- NOTE | 2017-02-01 08:00 | NUR ---
Opening Note Report received form Kwaku VIEIRA nurse. Patient is resting in bed. Call light is within reach and bed is in low position. IV is on thwe LFA 22g, saline locked. RFA AV fistula has a thrill and bruit. O2 is at 98% on 2l NC. Patient is due for HD today. Will follow up on HD order. Will continue to monitor.
[2017-02-01 08:05] VITALS: BP_SYST 115
[2017-02-01] MEDS: MENTHOL/ZINC OXIDE 113 GM OINT. TP PRN (09:09)
[2017-02-01] MEDS: MENTHOL/ZINC OXIDE 113 GM OINT. TP SCH ×3 (09:13→16:46)
[2017-02-01] MEDS: BALSAM PERU/CASTOR OIL 60 GM OINT...G. TP SCH (09:14)
[2017-02-01] MEDS: METOPROLOL SUCCINATE 25 MG TAB.SR.24H (TOPROL XL) PO SCH (09:15)
[2017-02-01] MEDS: NEPHROVITE, (FOLIC ACID/VITAMIN B COMP W-C 1 TAB) PO SCH (09:15)
[2017-02-01] MEDS: GABAPENTIN 100 MG CAPSULE PO SCH ×2 (09:15→15:38)
[2017-02-01] MEDS: ASPIRIN 81 MG TAB.CHEW PO SCH (09:15)
[2017-02-01] MEDS: SEVELAMER HCL 800 MG TABLET PO SCH (09:15)
[2017-02-01] MEDS: ANTIFUNGAL CLEAR OINTMENT TP SCH (09:17)
[2017-02-01] MEDS: HYDROcodone/ACETAMIN 5-325 MG TAB (NORCO/ VICODIN) PO PRN (09:23)
--- NOTE | 2017-02-01 09:25 | NUR ---
ID consult called: for Dr. Paige, to evaluate and recommend antibiotics for infected left leg, ordered by Dr. Kaiser, spoke with Rosita.
[2017-02-01 09:27] LABS: PLATELET COUNT (AUTO) 39 K/uL (130-430)
--- NOTE | 2017-02-01 09:57 | NUR ---
Faxed DC order Gregory to [phone] Filed fax confirmation in binder.
--- NOTE | 2017-02-01 10:25 | NUR ---
Wound Care Changed left LE dressing. Patient has four wounds on the lateral side of the extremity. Two are on the anterior and two are on the posterior. The largest is on the anterior, the center is black with a light pink beth wound. Applied indicated ointment, covered with foam dressing, and wrapped the extremity with kerlex.
[2017-02-01 12:00] VITALS: BP_SYST 108
--- NOTE | 2017-02-01 12:05 | NUR ---
DC planning: S/W Shauna Shin RN case mgr for [facility]--Informed her of LTAC eval and asked about [facility] eval, which she wanted to proceed with TCU eval also and said she would provide TCU with info and asked me to f/u with [facility] for additional information required. I s/w Sol on TCU and faxed her recent MD progress notes, medication list, labs, PT notes-RT notes-to fax#[phone]--Sol is reviewing the notes but concerned about pt not participating much with PT and is HD pt. Nurse Mejia is calling Dr. Kaiser to get order for dcp for [facility] and [facility] PRASHANTH PANG
[2017-02-01] MEDS ORDERED: LEVOFLOXACIN 250 MG/D5W 50 ML IV SCH (12:15)
--- NOTE | 2017-02-01 12:15 | NUR ---
Spoke with Spoke with Dr. Brown. Orders for transfer to TCU were received.
--- NOTE | 2017-02-01 13:51 | NUR ---
Case mgt: Met with patient and his Jamilah at bedside--pt was sleeping but woke him so that I could have family conference. I explained that pt would be transferred to [facility] to continue his physical therapy, wound care, IV antibiotics, hemodialysis at TCU. I brought to his and his 's attention that he has not proactively been participating with physical therapy here, and how important it is that he participates EVERY TIME physical therapy department staff approaches him to do a PT treatment. His Jamilah said he was able to walk before coming to the hospital and very independent. I told pt he HAS to participate with PT every time it's offered as a condition of transferring to [facility], and that he needs to build and regain his strength to become fully independent again. I also explained to Jamilah and patient that [facility] is NOT a long term care phlebotomist fpc, so he has to stay motivated with PT so that he can discharge back home. Both patient and his agreed to these terms of participating with PT at all times. Nurse Mejia made aware. I am faxing this note to Sol at [facility] per her request and will f/u with her for a bed. Ulises Saunders RN, [facility].
--- NOTE | 2017-02-01 14:00 | NUR ---
Rounds Patient is resting in bed. No signs of distress noted.
--- NOTE | 2017-02-01 14:48 | NUR ---
Case mgt: Rec'd call from Sol at [facility] at [phone]--she received additional faxed cm note and new IV medication list with new IV meds--She accepted pt and gave bed#111-bed#1 and pt to come at 1930...I s/w Shauna Shin for ambulance auth-She said to use [facility] and aware of weight 348 lbs. Per Cole at [facility], this pt will require 2nd ambulance rig and needs additional auth--Shauna gave tracking#[id number] and I let her know Cole said pt will need additional auth for additional ambulance rig to accomodate pt's weight of 348lbs. Updating nurse Mejia to call report to TCU at [phone]--I will update pt and --Transfer packet placed on nursing unit. PRASHANTH PANG
[2017-02-01] MEDS ORDERED: VANCOMYCIN HCL 750 MG in NS 250 ML IV SCH (15:00)
--- NOTE | 2017-02-01 15:30 | NUR ---
PHYSICAL THERAPY CO-SIGN The Physical Therapy Progress Notes documented by Architect Manager have been reviewed. Reviewed/Co-Signed by: Marlee Bennett, PT Documentation Done by: Hector Hansen PTA I concur with the documentation of this REFINISHER. Patient needs a lot of encouragement to increase participation with PT. Plan: we'll continue as per plan of care if he remains in this hospital. Addendum: 02/01/17 at 1537 by Marlee Bennett PT Amended: Links added.
[2017-02-01 16:00] VITALS: BP_SYST 109
[2017-02-01 16:30] VITALS: BP_SYST 115
--- NOTE | 2017-02-01 16:30 | NUR ---
Rounds Patient is resting in bed. No signs of distress noted.
--- NOTE | 2017-02-01 18:50 | NUR ---
Closing Note Report given to Javier form [facility]. Patient is in stable condition currently waiting for ambulance.
[2017-02-01] MEDS ORDERED: LEVO250P3 IV (18:54)
[2017-02-01] MEDS ORDERED: VANC750P5 IV (18:54)
--- NOTE | 2017-02-01 19:40 | NUR ---
Transition of Care Note Report given to [facility] ambulance. ID band and tele box removed. IV left in place per MD order.
== END 2017-02-01 19:50 | DRG 871 ==
LOC: SED 00:15 → STU 03:56 → SIC 01-20 15:30 → STU 01-23 18:27
PROVIDERS: ADMIT Internal Medicine; ATTEND Internal Medicine
PROC: 5A09557 Assistance with Respiratory Ventilation, Greater than 96 Consecutive Hours, Continuous Positive Airway Pressure (ICD-10-PCS; principal; 2017-01-20)
PROC: 5A1D60Z (ICD-10-PCS; 2017-01-20)
PROC: 06HM33Z Insertion of Infusion Device into Right Femoral Vein, Percutaneous Approach (ICD-10-PCS; 2017-01-21)
PROC: B54BZZA Ultrasonography of Right Lower Extremity Veins, Guidance (ICD-10-PCS; 2017-01-21)
DX: A41.53 Sepsis due to Serratia (principal); N18.6 End stage renal disease; R09.2 Respiratory arrest; I21.3 ST elevation (STEMI) myocardial infarction of unspecified site; G93.40 Encephalopathy, unspecified; I12.0 Hypertensive chronic kidney disease with stage 5 chronic kidney disease or end stage renal disease; D69.6 Thrombocytopenia, unspecified; I42.0 Dilated cardiomyopathy; L03.116 Cellulitis of left lower limb; Z68.43 Body mass index [BMI] 50.0-59.9, adult; T82.868A Thrombosis due to vascular prosthetic devices, implants and grafts, initial encounter; E11.22 Type 2 diabetes mellitus with diabetic chronic kidney disease; E11.40 Type 2 diabetes mellitus with diabetic neuropathy, unspecified; E66.01 Morbid (severe) obesity due to excess calories; E78.00 Pure hypercholesterolemia, unspecified; I25.10 Atherosclerotic heart disease of native coronary artery without angina pectoris; E83.39 Other disorders of phosphorus metabolism; E11.51 Type 2 diabetes mellitus with diabetic peripheral angiopathy without gangrene; E11.21 Type 2 diabetes mellitus with diabetic nephropathy; G47.33 Obstructive sleep apnea (adult) (pediatric); I48.0 Paroxysmal atrial fibrillation; E11.621 Type 2 diabetes mellitus with foot ulcer; L97.529 Non-pressure chronic ulcer of other part of left foot with unspecified severity; I87.2 Venous insufficiency (chronic) (peripheral); I87.8 Other specified disorders of veins; Y83.2 Surgical operation with anastomosis, bypass or graft as the cause of abnormal reaction of the patient, or of later complication, without mention of misadventure at the time of the procedure; Y92.89 Other specified places as the place of occurrence of the external cause; Z83.3 Family history of diabetes mellitus; Z87.891 Personal history of nicotine dependence; Z99.2 Dependence on renal dialysis; Z95.1 Presence of aortocoronary bypass graft
CPT/HCPCS: 36415; 36600; 70450-TC; 71010; 80048; 80053; 80076; 80202-TC; 82140-TC; 82306; 82803-TC; 82962; 83605; 83735-TC; 83880; 84484; 85007; 85025; 85027; 85610-TC; 85730-TC; 86803; 87040-TC; 87070-TC; 87075-TC; 87081; 87186-TC; 90935; 90937; 93005; 93306; 93971; 94660; 94760; 97110-GP; 97530-GP; 99285; A6209; J0696; J1160; J1644; J1815; J1956; J2543; J3370; J3490; J7030; J7040; J7050; J7060